=== PATIENT | female | born 1960 | race Caucasian/White ===

== ENCOUNTER 2017-01-20 13:44 | Inpatient (IN) | payer MEDICAID, OTHER ==
[2017-01-20 14:40] LABS: % IMMATURE GRANULYOCYTES 0.6 % (0.0-1.1); ABSOLUTE IMMATURE GRANULOCYTES 0.11 10^3/uL (0.00-0.10); ADD DIFF? NO; ADD MORPH? NO; ADD SCAN? NO; ATYPICAL LYMPHOCYTE FLAG 0 (0-99); FRAGMENT RBC FLAG 0 (0-99); HEMATOCRIT 36.5 % (38.0-47.0); HEMOGLOBIN 12.2 g/dL (12.6-16.3); LEFT SHIFT FLG 20 (0-99); LIPEMIA HEMOLYSIS FLAG 80 (0-99); MEAN CELL HEMOGLOBIN CONCENTR. 33.4 g/dL (32.4-36.7); MEAN CELL VOLUME 92.6 fL (81.5-99.8); MEAN PLATELET VOLUME 9.4 fL (8.7-11.7); PLATELET CLUMPS FLAG 10 (0-99); PLATELET COUNT 392 10^3/uL (150-400); RED BLOOD CELL COUNT 3.94 10^6/uL (4.18-5.33); RED CELL DISTRIBUTION WIDTH 13.4 % (11.5-15.2)
--- NOTE | 2017-01-20 14:40 | EDPHY ---
H & P Stated Complaint: fever and cough and back pain x 3 days . Time Seen by Provider: 01/20/17 14:14 HPI/ROS: Chief Complaint: Fever, cough, headache HPI: 56-year-old woman has been having fever cough and headache for the last 5 days. She is productive of green sputum. She has been having increasing shortness of breath with exertion. She does have a history of smoking but has never been diagnosed with COPD. She does not use any inhalers or oxygen at home. She has seen by her primary care physician's office and sent here for further evaluation. In triage was noted that her oxygen saturations were 75-80 % with a good waveform. Patient is also complaining of low back pain which is a exacerbation of her chronic pain. She has not have any pain with deep inspiration. No nausea or vomiting. No central chest pain. ROS: 10 point Review of Systems is negative except as noted in the HPI. PMH: SVT, hypertension, depression, chronic back pain Medications: Atenolol, lisinopril, fluoxetine, gabapentin, potassium, Percocet Allergies: Clindamycin causes hives Social History: Positive smoking Family History: non-contributory Physical Exam: Gen: Awake, Alert, No Distress HEENT: Nose: no rhinorrhea Eyes: PERRLA, EOMI Mouth: Moist mucosa Neck: Supple, no JVD Chest: nontender, diminished breath sounds bilaterally, no wheeze, rhonchi at the bilateral bases Heart: S1, S2 normal, no murmur Abd: Soft, non-tender, no guarding Back: no CVA tenderness, no midline tenderness Ext: no edema, non-tender Skin: no rash Neuro: CN II-XII intact, Sensation grossly intact, Strength 5/5 in bilateral upper and lower extremities - Personal History LMP (Females 10-55): Post Menopausal Current Tetanus Diphtheria and Acellular Pertussis (TDAP): Yes - Medical/Surgical History Hx Asthma: No Hx Chronic Respiratory Disease: No Hx Diabetes: No Hx Cardiac Disease: No Hx Renal Disease: No Hx Cirrhosis: No Hx Alcoholism: No Hx HIV/AIDS: No Hx Splenectomy or Spleen Trauma: No Other PMH: HTN/ORTHO- L4-L5-S1. SVT. Depression - Social History Smoking Status: Heavy smoker Constitutional: Initial Vital Signs Temperature (C) 37.9 C 01/20/17 13:50 Heart Rate 94 01/20/17 13:50 Respiratory Rate 20 01/20/17 13:50 Blood Pressure 113/74 01/20/17 13:50 O2 Sat (%) 88 L 01/20/17 13:50 O2 Delivery Mode Room Air O2 (L/minute) 2 Allergies/Adverse Reactions: clidinium [Clidinium] Allergy (Verified 01/20/17 13:59) clindamycin Allergy (Verified 01/20/17 13:59) Home Medications: Medication Instructions Recorded Atenolol 04/28/13 GABAPENTIN 04/28/13 Percocet 10-325 mg Tablet 04/28/13 Prozac 04/28/13 Lisinopril 01/20/17 Medical Decision Making - Diagnostics Imaging Results: Imaging Impressions Chest X-Ray 01/20/17 14:12 Impression: Bilateral pneumonia. Recommend follow-up x-ray to ensure clearing. ED Course/Re-evaluation: 56-year-old woman presenting with cough headache fever and shortness of breath. She has oxygen saturation 75%. Her heart rate and blood pressure are normal. She is not appear septic at this time. I suspect she probably has underlying COPD as well. Will obtain chest x-ray, CBC, blood cultures, flu swab. Chest x-ray noted for bilateral infiltrates. I have ordered azithromycin and ceftriaxone. I have discussed with Dr. Dietz, hospitalist. She will admit the patient to [facility] for further care. - Data Points Laboratory Results: Laboratory Results 01/20/17 14:35 01/20/17 14:35 01/20/17 01/20/17 01/20/17 14:35 14:35 14:35 WBC RBC Hgb Hct MCV MCH MCHC RDW Plt Count MPV Neut % (Auto) Lymph % (Auto) [place] % (Auto) Eos % (Auto) Baso % (Auto) Nucleat RBC Rel Count Absolute Neuts (auto) Absolute Lymphs (auto) Absolute Monos (auto) Absolute Eos (auto) Absolute Basos (auto) Absolute Nucleated RBC Immature Gran % Immature Gran # VBG Lactic Acid Pending Sodium 134 mEq/L mEq/L (134-144) Potassium 4.1 mEq/L mEq/L (3.5-5.2) Chloride 95 mEq/L L mEq/L (97-110) Carbon Dioxide 24 mEq/l mEq/l (22-31) Anion Gap 15 mEq/L mEq/L (8-16) BUN 9 mg/dL mg/dL (7-23) Creatinine 0.7 mg/dL mg/dL (0.6-1.0) Estimated GFR > 60 Glucose 89 mg/dL mg/dL (70-100) Calcium 9.3 mg/dL mg/dL (8.5-10.4) Nasal Influenza A PCR Pending Nasal Influenza B PCR Pending 01/20/17 14:35 WBC 19.08 10^3/uL H 10^3/uL (3.80-9.50) RBC 3.94 10^6/uL L 10^6/uL (4.18-5.33) Hgb 12.2 g/dL L g/dL (12.6-16.3) Hct 36.5 % L % (38.0-47.0) MCV 92.6 fL fL (81.5-99.8) MCH 31.0 pg pg (27.9-34.1) MCHC 33.4 g/dL g/dL (32.4-36.7) RDW 13.4 % % (11.5-15.2) Plt Count 392 10^3/uL 10^3/uL (150-400) MPV 9.4 fL fL (8.7-11.7) Neut % (Auto) 74.0 % % (39.3-74.2) Lymph % (Auto) 16.9 % % (15.0-45.0) [place] % (Auto) 7.3 % % (4.5-13.0) Eos % (Auto) 0.9 % % (0.6-7.6) Baso % (Auto) 0.3 % % (0.3-1.7) Nucleat RBC Rel Count 0.0 % % (0.0-0.2) Absolute Neuts (auto) 14.12 10^3/uL H 10^3/uL (1.70-6.50) Absolute Lymphs (auto) 3.23 10^3/uL H 10^3/uL (1.00-3.00) Absolute Monos (auto) 1.39 10^3/uL H 10^3/uL (0.30-0.80) Absolute Eos (auto) 0.17 10^3/uL 10^3/uL (0.03-0.40) Absolute Basos (auto) 0.06 10^3/uL 10^3/uL (0.02-0.10) Absolute Nucleated RBC 0.00 10^3/uL 10^3/uL (0-0.01) Immature Gran % 0.6 % % (0.0-1.1) Immature Gran # 0.11 10^3/uL H 10^3/uL (0.00-0.10) VBG Lactic Acid Sodium Potassium Chloride Carbon Dioxide Anion Gap BUN Creatinine Estimated GFR Glucose Calcium Nasal Influenza A PCR Nasal Influenza B PCR Departure - Departure Disposition: [facility] Inpatient Acute Clinical Impression: Pneumonia Condition: Fair Referrals: NONE *PRIMARY CARE P,. [Primary Care Provider] - As per Instructions
[2017-01-20 14:51] LABS: ANION GAP 15 mEq/L (8-16); CALCIUM 9.3 mg/dL (8.5-10.4); CARBON DIOXIDE 24 mEq/l (22-31); CHLORIDE 95 mEq/L (97-110); CREATININE 0.7 mg/dL (0.6-1.0); GLOMERULAR FILTRATION RATE > 60; GLUCOSE 89 mg/dL (70-100); POTASSIUM 4.1 mEq/L (3.5-5.2); SODIUM 134 mEq/L (134-144)
[2017-01-20] MEDS ORDERED: AZITHROMYCIN 250 MG TAB PO ONE (14:59)
[2017-01-20] MEDS ORDERED: IBUPROFEN 600 MG TAB PO ONE (16:09)
[2017-01-20] MEDS ORDERED: NS 1,000 ML IV ONE ×2 (17:47→19:57)
[2017-01-20] MEDS ORDERED: ACETAMINOPHEN 325 MG TAB PO PRN (19:49)
[2017-01-20] MEDS ORDERED: ONDANSETRON 4 MG/2 ML VIAL IVP PRN (19:49)
[2017-01-20] MEDS ORDERED: NS 1,000 ML IV SCH (20:00)
--- NOTE | 2017-01-20 20:23 | GHP ---
[f rep st] HISTORY AND PHYSICAL DATE OF ADMISSION: 01/20/2017 CHIEF COMPLAINT: Cough. HISTORY: The patient is a 56-year-old female, who has been sick for about a week. Her main complain t is sinus congestion with drainage. She went to physical therapy today for her chronic back pain an d they immediately said she did look very good and took some vital signs and her temperature was a 10 1 and she was 75% on room air and she was sent to the emergency room. After being sent to the emerge ncy room, she realized that she actually is a little short of breath with exertion and even with just talking. She has had a green productive sputum and headache. She is a little confused and hypotens roland on presentation to the hospital. PAST MEDICAL HISTORY: 1. SVT. 2. Hypertension. 3. Depression. 4. Chronic back pain. PAST SURGICAL HISTORY: Multiple spine surgeries. MEDICATIONS: Please see computer record for full detailed list. ALLERGIES: Clindamycin. SOCIAL HISTORY: She smokes 10 cigarettes per day. She drinks 1-2 glasses of rum per day. She lives with her boyfriend and daughter and daughter's kids. REVIEW OF SYSTEMS: Complete review of systems obtained. Review of systems negative on constitutiona l, HEENT, GI, pulmonary, vascular, , hematology, skin, muscular, endocrine, psych. Remainder posit joanna and negatives as in HPI. FAMILY HISTORY: Reviewed, noncontributory to presenting complaint. PHYSICAL EXAMINATION: GENERAL: Well-developed, well-nourished female, in no acute distress. VITAL SIGNS: Temperature is 37.3, pulse 100, blood pressure 113/74, saturating 88% on room air. EYES: No rmal conjunctivae. Pupils react to light. ENT: Normal ears, nose. Hearing intact. Normal teeth. Oropharynx moist. NECK: Trachea midline. No thyromegaly. CHEST: Normal effort. LUNGS: Clear t o auscultation bilaterally with no wheezes, but there are rales. No rhonchi. CARDIOVASCULAR: Regul ar rhythm. No murmur. No extremity edema. ABDOMEN: Soft, nontender. No hepatosplenomegaly. SKIN : Warm, dry, intact. No rash. MUSCULOSKELETAL: No cyanosis or clubbing. Strength 5/5 upper and l ower extremities. NEUROLOGIC: Cranial nerves intact. Normal sensation to light touch. PSYCH: Larisa rt and oriented x3. Normal mood and affect. Normal judgment. Normal memory. LABORATORY DATA: White count 19.08, hematocrit 36.5, platelets 392. Sodium 134, potassium 4.1, chlo ride 95, bicarb 24, BUN 9, creatinine 0.7, glucose 89. Lactate 1.5. Influenza is negative. Chest x -ray, reviewed by me and my personal interpretation is bilateral pneumonia. This case was discussed with Dr. Kayden Matos who saw her at [facility]. He initiated antibiotics and set up for admission. ASSESSMENT/PLAN: 1. Pneumonia. We will treat for community-acquired pneumonia with ceftriaxone and azithromycin. He r influenza is negative. I will send off a full respiratory PCR. I suspect this is a viral componen t problem. 2. Acute respiratory failure. She is now stable on oxygen. 3. Tobacco dependence. She is not wheezing. We will give her a nicotine patch. 4. Severe sepsis. She has developed hypotension since presentation and she did not get any IV fluid at [facility] ER, so I am going ahead and giving a sepsis bolus now 2 L and then will run a continuous rate. Her lactate is okay. Her blood cultures have been sent. 5. Metabolic encephalopathy. This is due to her infection. 6. History of supraventricular tachycardia. We will continue atenolol if her blood pressure allows. 7. Chronic back pain. She uses chronic Percocet which will be continued. CODE STATUS: Full. ADMISSION STATUS: Will admit to observation as length of treatment will depend on clinical course. DEEP VENOUS THROMBOSIS PROPHYLAXIS: She is moderate risk. We will place her on subcu Lovenox. /[id number]/MODL
[2017-01-20] MEDS: GABAPENTIN 300 MG CAP PO SCH (20:58)
[2017-01-20] MEDS: OXYCODONE/APAP 5/325 TAB PO PRN (20:58)
[2017-01-21] MEDS ORDERED: NS 1,000 ML IV ONE ×3 (00:13→22:43)
[2017-01-21] MEDS: OXYCODONE/APAP 5/325 TAB PO PRN ×4 (02:06→23:14)
[2017-01-21] MEDS: oxyCODONE IR 5 MG TAB PO PRN ×2 (02:07→20:29)
[2017-01-21 04:55] LABS: % IMMATURE GRANULYOCYTES 0.6 % (0.0-1.1); ABSOLUTE IMMATURE GRANULOCYTES 0.08 10^3/uL (0.00-0.10); ADD DIFF? NO; ADD MORPH? NO; ADD SCAN? NO; ATYPICAL LYMPHOCYTE FLAG 0 (0-99); FRAGMENT RBC FLAG 0 (0-99); HEMATOCRIT 29.5 % (38.0-47.0); HEMOGLOBIN 9.7 g/dL (12.6-16.3); LEFT SHIFT FLG 10 (0-99); LIPEMIA HEMOLYSIS FLAG 80 (0-99); MEAN CELL HEMOGLOBIN 31.4 pg (27.9-34.1); MEAN CELL HEMOGLOBIN CONCENTR. 32.9 g/dL (32.4-36.7); MEAN CELL VOLUME 95.5 fL (81.5-99.8); MEAN PLATELET VOLUME 9.7 fL (8.7-11.7); PLATELET CLUMPS FLAG 10 (0-99); PLATELET COUNT 300 10^3/uL (150-400); RED BLOOD CELL COUNT 3.09 10^6/uL (4.18-5.33); RED CELL DISTRIBUTION WIDTH 13.6 % (11.5-15.2)
[2017-01-21 05:21] LABS: ANION GAP 6 mEq/L (8-16); CALCIUM 8.1 mg/dL (8.5-10.4); CARBON DIOXIDE 20 mEq/l (22-31); CHLORIDE 111 mEq/L (97-110); CREATININE 0.7 mg/dL (0.6-1.0); GLOMERULAR FILTRATION RATE > 60; GLUCOSE 110 mg/dL (70-100); POTASSIUM 4.5 mEq/L (3.5-5.2); SODIUM 137 mEq/L (134-144)
[2017-01-21] MEDS: POTASSIUM CL 10 MEQ TAB PO SCH (08:30)
[2017-01-21] MEDS: ATENOLOL 25 MG TAB PO SCH (08:30)
[2017-01-21] MEDS: GABAPENTIN 300 MG CAP PO SCH ×2 (08:31→20:29)
[2017-01-21] MEDS: FLUoxetine 20 MG CAP PO SCH (08:31)
[2017-01-21] MEDS: ENOXAPARIN 40 MG/0.4 ML SYR SC SCH (08:32)
[2017-01-21] MEDS ORDERED: NICOTINE 14 MG/24 HR PATCH TD SCH (09:00)
[2017-01-21] MEDS ORDERED: NICOTINE 21 MG/24 HR PATCH TD SCH (09:00)
[2017-01-21] MEDS ORDERED: LISINOPRIL 20 MG TAB PO SCH (09:00)
[2017-01-21] MEDS: AZITHROMYCIN IV 500 MG in D5W 250 ML IV SCH (09:16)
--- NOTE | 2017-01-21 09:35 | HOSPPROG ---
Hospitalist Progress Note Assessment/Plan: Patient is a 56-year-old female who has been sick for approximately a week. Her main complaint is sinus congestion with drainage. She was getting physical therapy for her chronic back pain and was noted at that time her temperature was 101 degrees and her oxygen levels were 75% on room air. Today is my 1st encounter with the patient. Chart reviewed. * community-acquired pneumonia -she is negative for the influenza -PCR is positive for human rhino virus and and enterovirus -on azithromycin and ceftriaxone -leukocytosis has improved overnight * acute hypoxemic respiratory failure -stable on 2 L * sepsis with associated hypotension -lactate is stable -blood cultures are pending * metabolic encephalopathy -patient describes herself as being "off" -unclear if r/t illness, narcotics -will ask ST to see *Hypotension -cont fluids x 1 more liter * history of SVT -none ntoed *Nicotine dependence: allergic to patch -doesn't want gum * chronic pain on continuous, chronic opioids for chronic back pain -home meds resumed/ added ibuprofen *dvt prophylaxis: LMWH *Plan: will require another midnight stay for further evaluation. Patient is feeling poorly. Feels confused and not like herself, bp is on the low side/ will cont IV hydration. She will be IP.Will ask PT and OT to see and treat. she was very sedate and drowsy during my interview, will hold a.m. gabapentin dose to see if she clears tomorrow. Subjective: Georgie is feeling poorly/ says her legs are weak and she isn't feeling like herself. Objective: Vital Signs Temp Pulse Resp BP Pulse Ox 36.4 C 74 74 H 108/64 98 01/21/17 07:58 01/21/17 08:30 01/21/17 07:58 01/21/17 08:30 01/21/17 07:58 Microbiology 01/20/17 21:05 Respiratory Panel (PCR) - Final Nasal, Sinus - Swab Human Rhinovirus/Enterovirus Laboratory Results 01/21/17 04:43 01/21/17 04:43 01/20/17 01/21/17 01/22/17 05:59 05:59 05:59 Intake Total 3967 Balance 3967 - Physical Exam Constitutional: uncomfortable Eyes: PERRL Ears, Nose, Mouth, Throat: hearing normal Cardiovascular: regular rate and rhythym Respiratory: no respiratory distress Gastrointestinal: normoactive bowel sounds Skin: warm Musculoskeletal: generalized weakness Neurologic: AAOx3 (but very drowsy, closes her eyes frequently while talking with me) Psychiatric: thought process linear ICD10 Worksheet Patient Problems: Problems Problem Status Onset Pneumonia Acute
--- NOTE | 2017-01-21 10:46 | ASMTCMCOM ---
CM Note CM Note Notes: Patient admitted after presenting to [facility] ED with hypotension and low 02 sats. Diagnosed with PNA. Now on antibiotics and improving. PT/OT ordered and pending. Patient lives with her boyfriend and other family members. I anticipate she will discharge independently. CM available for any d/c needs. Date Signed: 01/21/2017 10:46 AM Electronically Signed By:Yue Bolanos RN
[2017-01-21] MEDS ORDERED: IBUPROFEN 200 MG TAB PO PRN (11:20)
[2017-01-21] MEDS ORDERED: IBUPROFEN 600 MG TAB PO ONE (11:20)
[2017-01-21] MEDS: ALBUTEROL 3 ML DEYVIAL IH SCH ×3 (12:45→21:48)
--- NOTE | 2017-01-21 13:13 | PDMN ---
Medical Necessity Medical necessity: change to IP; LOS>2 mn for CAP, acute hypoxemic resp failure , sepsis w/ hypotension, metabolic encephalopathy; continue IV abx, follow cx's , ST eval; hx SVT, chronic pain; per progress note and order 01/21/17
[2017-01-21] MEDS ORDERED: NS 500 ML IV ONE (15:43)
[2017-01-21] MEDS ORDERED: NS 1,000 ML IV SCH (22:45)
[2017-01-21] MEDS ORDERED: GUAIFENESIN/DM 10 ML UDCUP PO PRN (23:13)
[2017-01-21] MEDS ORDERED: BENZONATATE 100 MG CAP PO PRN (23:14)
--- NOTE | 2017-01-22 01:55 | CPEKG ---
Heart Rate: 102 RR Interval: 588 P-R Interval: 172 QRSD Interval: 100 QT Interval: 344 QTC Interval: 449 P Power: 58 QRS Power: -21 T Wave Power: 57 EKG Severity - ABNORMAL ECG - EKG Impression: SINUS TACHYCARDIA EKG Impression: BORDERLINE LEFT AXIS DEVIATION EKG Impression: MINIMAL ST DEPRESSION, ANTEROLATERAL LEADS EKG Impression: INCOMPLETE RIGHT BUNDLE BRANCH BLOCK EKG Impression: LEFT ATRIAL ENLARGEMENT Electronically Signed By: Tommie Clemons 22-Jan-2017 12:01:29
[2017-01-22 02:17] LABS: % IMMATURE GRANULYOCYTES 0.5 % (0.0-1.1); ADD DIFF? NO; ADD MORPH? NO; ADD SCAN? NO; ATYPICAL LYMPHOCYTE FLAG 0 (0-99); FRAGMENT RBC FLAG 0 (0-99); HEMATOCRIT 27.8 % (38.0-47.0); HEMOGLOBIN 9.1 g/dL (12.6-16.3); LEFT SHIFT FLG 10 (0-99); LIPEMIA HEMOLYSIS FLAG 80 (0-99); MEAN CELL HEMOGLOBIN 31.3 pg (27.9-34.1); MEAN CELL HEMOGLOBIN CONCENTR. 32.7 g/dL (32.4-36.7); MEAN CELL VOLUME 95.5 fL (81.5-99.8); MEAN PLATELET VOLUME 10.1 fL (8.7-11.7); PLATELET CLUMPS FLAG 0 (0-99); PLATELET COUNT 318 10^3/uL (150-400); RED BLOOD CELL COUNT 2.91 10^6/uL (4.18-5.33); RED CELL DISTRIBUTION WIDTH 13.6 % (11.5-15.2)
[2017-01-22 02:30] LABS: ALANINE AMINOTRANSFERASE 44 IU/L (9-52); ALBUMIN 2.5 g/dL (3.5-5.0); ALKALINE PHOSPHATASE 107 IU/L (38-126); ANION GAP 8 mEq/L (8-16); ASPARTATE AMINOTRANSFERASE 37 IU/L (14-46); BILIRUBIN,TOTAL 0.3 mg/dL (0.1-1.4); CARBON DIOXIDE 18 mEq/l (22-31); CHLORIDE 114 mEq/L (97-110); CREATININE 0.6 mg/dL (0.6-1.0); GLOMERULAR FILTRATION RATE > 60; GLUCOSE 106 mg/dL (70-100); POTASSIUM 4.1 mEq/L (3.5-5.2); SODIUM 140 mEq/L (134-144); TOTAL PROTEIN 4.5 g/dL (6.3-8.2)
[2017-01-22 02:41] LABS: TROPONIN I < 0.012 ng/mL (0.000-0.034)
--- NOTE | 2017-01-22 02:51 | HOSPPROG ---
Hospitalist Progress Note Assessment/Plan: Hospitalist Night FLoat Note RN notified that patient with increased O2 demands from 2 lpm to 10 lpm on oxy mask. Patient blood pressures also noted to be SBP 80s. not tachycardic. Patient also with drop in BPs last nigth response to additional IVF bolus. Tonight patient with only minimal improvement in SBP to low 90s. Patient also increasingly confused, restless, impulsive. Hx of daily alcohol intake including 3 or more beverages of rum daily. Patient admitted with bilateral pneumonia, sepsis and +Rhinovirus on respiratory panel. Patient c/o increased WOB, SOB, substernal chest pain and cough. VS reviewed. Gen - NAD. patient sitting in in bed awake. patient is restless but answers questions appropriately. appears flushed, acutely ill but nontoxic. CV - RRR. no m/r/g. Resp - mild increased WOB more so when patient moves. coarse breath sounds diffusely with occasional wheezing. diminished air movement in bases. + congested sounding cough. GI - soft abdomen. + BS. NTTP. no rebound/guarding. - no alston in place. no suprapubic ttp. Ext - trace pitting edema to lower extremities. Neuro - nonfocal. moves all extremities. patient unsteady on feet and tries to sit up without assistance to use commode. Psych - patient a little confused. She is restless and increasingly agitated with multiple questions. She is oriented to person and place. Patient would not allow me to call her family with updates. Acute hypoxic resp failure bilateral pna +rhinovirus +tobacco abuse +etoh abuse with likely withdrawal. Plan - chest pain eval - likely related to bilateral pneumonia but patient can only provide limited history at this time. check trop, ekg with NSR with minimal < 1mm ST depression anterolateral leads which could be indicative of demand in setting of worsening resp status. cxr worsened with diffuse infiltrate/edema. BPs too low at this time to allow for diuresis. s/p nebs. check abg, lactic acid and am labs. - hypotension - BPs slightly increased. goal SBP > 90 MAP >65. patient will go to unit for bipap and may require pressor support. - hx etoh - patient will be placed on ciwa monitoring but BPs at this time too low for benzo support. - acute hypoxic resp failure - patient transferring to ICU for bipap support if she will tolerate. pulm/cc consult in AM. critical care time spent this AM 25 minutes. Objective: Vital Signs Temp Pulse Resp BP Pulse Ox 36.9 C 101 H 22 H 86/58 L 88 L 01/22/17 00:00 01/22/17 00:00 01/22/17 00:00 01/22/17 00:00 01/22/17 00:00 Microbiology 01/21/17 Unknown - Final Sputum, Expectorated Laboratory Results 01/22/17 01:50 01/22/17 01:50 01/20/17 01/21/17 01/22/17 05:59 05:59 05:59 Intake Total 1210 Balance 1210 ICD10 Worksheet Patient Problems: Problems Problem Status Onset Pneumonia Acute
[2017-01-22 03:00] LABS: CORTISOL-AM 10.1 ug/dL (4.5-22.7)
[2017-01-22] MEDS: THIAMINE HCL 500 MG in NS 100 ML IV SCH ×2 (03:00→11:33)
[2017-01-22] MEDS ORDERED: FUROSEMIDE 20 MG/2 ML VIAL IVP ONE (03:00)
[2017-01-22 03:52] LABS: BASE EXCESS -6.9 mEq/L (-2.5-2.5); BICARBONATE 18 mEq/L (22-26); MEASURED OXYGEN SATURATION 91 % (92-95); PCO2 38 mmHg (34-38); PO2 65 mmHg (65-75); TCO2 20 mEq/L (23-27)
[2017-01-22 03:53] LABS: BIPAP YES; EXP PRESSURE 6; INSP PRESSURE 450; OXYGEN BLEED 60
[2017-01-22] MEDS: ALBUTEROL 3 ML DEYVIAL IH SCH ×4 (05:19→21:48)
[2017-01-22] MEDS ORDERED: COSYNTROPIN 0.25 MG/2 ML SYRINGE IVP ONE (06:00)
[2017-01-22] MEDS: OXYCODONE/APAP 5/325 TAB PO PRN (08:15)
[2017-01-22] MEDS: FLUoxetine 20 MG CAP PO SCH (08:16)
[2017-01-22] MEDS: oxyCODONE IR 5 MG TAB PO PRN ×2 (08:17→15:43)
--- NOTE | 2017-01-22 08:47 | HOSPPROG ---
Hospitalist Progress Note Assessment/Plan: #Acute metabolic/toxic encephalopathy: due acute infection, hypoxia and etoh w/ d. #Severe sepsis: due to viral URI vs aspiration. #Acute hypoxic resp failure: Rhino/enterovirus. Diffuse BL infiltrates on CXR ( personally-reviewed), ARDS. Likely aspirated with confusion. Change abx to Unasyn. Cont IV diuresis and Bipap #Depression: prozac #h/o SVT: hold atenolol with hypotension #HTN: holding BP meds with hypotension #Leukocytosis: due to viral infection vs aspiration PNA/pneumonitis #Etoh withdrawal: drinks liquor daily. Scoring 5-6 on CIWA #h/o SVT: resume atenolol once BP stable #Diet: regular #Disp: patient does not have medical decision capacity given confusion with acute illness and w/d. She is agreeable to stay now. If tries to leave, then she will be on a medical detainer to prevent harm to herself Critical care time spent: 60min bedside with patient, reviewing lab/records, and d/w Dr. Rainey Subjective: "no one is telling me what's wrong". Very SOB this morning Objective: Vital Signs Temp Pulse Resp BP Pulse Ox 36.9 C 112 H 24 H 86/58 L 96 01/22/17 00:00 01/22/17 05:20 01/22/17 05:20 01/22/17 00:00 01/22/17 05:20 Microbiology 01/21/17 Unknown - Final Sputum, Expectorated Laboratory Results 01/22/17 01:50 01/22/17 01:50 01/21/17 01/22/17 01/23/17 05:59 05:59 05:59 Intake Total 1335 Output Total 2200 Balance -865 - Physical Exam Constitutional: uncomfortable, other (sitting on couch off oxygen) Eyes: PERRL Ears, Nose, Mouth, Throat: moist mucous membranes Cardiovascular: tachycardia Respiratory: respiratory distress (increased WOB, breathless when talking) Gastrointestinal: normoactive bowel sounds Genitourinary: no bladder fullness Musculoskeletal: full muscle strength Neurologic: CN II-XII Intact Psychiatric: anxious, depressed ICD10 Worksheet Patient Problems: Problems Problem Status Onset Pneumonia Acute
[2017-01-22] MEDS: ENOXAPARIN 40 MG/0.4 ML SYR SC SCH (08:49)
[2017-01-22] MEDS: POTASSIUM CL 10 MEQ TAB PO SCH (08:49)
[2017-01-22] MEDS ORDERED: LORazepam 0.5 MG TAB PO ONE (09:05)
[2017-01-22] MEDS: LORazepam 1 MG TAB PO PRN ×2 (09:31→15:43)
[2017-01-22] MEDS: VODKA 50 ML BOTTLE PO SCH ×2 (11:34→16:17)
[2017-01-22] MEDS: AZITHROMYCIN IV 500 MG in D5W 250 ML IV SCH (11:34)
[2017-01-22 12:40] LABS: MAGNESIUM 1.5 mg/dL (1.6-2.3)
--- NOTE | 2017-01-22 14:46 | ASMTCMCOM ---
CM Note CM Note Notes: Patient does not have decisional capacity given the confusion from acute illness and w/d. Dr. Rey will put on medical detainer if patient tries to leave. Patient is agreeable to stay for now. PT/OT/SPL have been ordered. CM will follow. Date Signed: 01/22/2017 02:45 PM Electronically Signed By:Breann Hernandez LCSW
--- NOTE | 2017-01-22 14:50 | ECHO ---
[email or web address] [address] Main: [phone] Fax: Transthoracic Echocardiogram Name: JIGAR ANGELES MR#: [id number] Study Date: 01/22/2017 Study Time: 09:06 AM Date of : 1960 Age: 56 year(s) Height: 152.4 cm (60 in.) Weight: 55.34 kg (122 lb.) BSA: 1.51 m2 Gender: Female Examination: Echo Indication: hypotension Image Quality: Technically Difficult Contrast: Requested by: Catalina Dietz BP: / Heart Rate: Rhythm: Normal sinus rhythm Indication: hypotension Procedure Staff Preschool Teacher: Adry Wagner Physician: Jadiel Hodge Requesting Provider: Conclusions: Normal global systolic LV function. Mild mitral valve regurgitation is present. Mild to moderate tricuspid valve regurgitation. No pericardial effusion. Measurements: Chambers Valvular Assessment AV/MV Valvular Assessment TV/PV Normal Normal Normal Name Value Range Name Value Range Name Value Range Ao Anat (MM): 2.4 cm (2.2 cm-3.7 AV Vmax: 1.60 m/s (1 m/s-1.7 TR Vmax: 3.36 mm/s ( - ) cm) m/s) TR PGmax: 45 mmHg ( - ) IVSd (2D): 0.8 cm (0.6 cm-1.1 AV maxP mmHg ( - ) syst. PAP: 50 mmHg ( - ) cm) LVOT Vmax: 1.03 m/s (0.7 m/s-1.1 PV Vmax: 0.89 m/s (0.6 m/s-0.9 LVDd (2D): 4.3 cm (3.9 cm-5.3 m/s) m/s) cm) MV E Vmax: 1.11 m/s ( - ) PV PGmax: 3 mmHg ( - ) LVDs (2D): 2.3 cm (2.1 cm-4 MV A Vmax: 0.81 m/s ( - ) cm) MV E/A: 1.37 ( - ) LVPWd (2D): 0.8 cm ( - ) LVEF (MOD4): 78 % (>=55 %) RVDd(2D): 2.7 cm (1.9 cm-3.8 cmmm) Continued Measurements: Chambers Valvular Assessment AV/MV Valvular Assessment TV/PV Name Value Name Value Name Value LADs Lon.4 cm MV DecTime: 119 m/s CVP (est.): 5 mmHg LA Area: 14.8 cm2 MV E' Septal: 0.09 m/s LA Volume: 30 ml MV E/E' Septal: 12.50 LA Volume Index: 19.9 ml/m2 MV E/E' Lateral: 9.00 Patient: JIGAR ANGELES Study Date: 01/22/2017 Page 1 of 2 09:06 AM Additional Vessels Name Value Ao Ascendin.2 cm Findings: Left Ventricle: Normal size left ventricle. No LV hypertrophy. Normal global systolic LV function. EF is 78 %. No regional wall motion abnormality. Normal diastolic LV function. Right Ventricle: Normal size right ventricle. Left Atrium: The left atrium is normal in size. Right Atrium: The right atrium is normal in size. Mitral Valve: The mitral valve is normal in appearance and function. Mild mitral valve regurgitation is present. Aortic Valve: The aortic valve is normal in appearance and function. Tricuspid Valve: The tricuspid valve is normal in appearance and function. Mild to moderate tricuspid valve regurgitation. The pulmonary artery pressure is moderately increased. Right ventricular systolic pressure measures 50mmHg. Pulmonic Valve: The pulmonic valve is normal in appearance and function. Aorta: The aorta is normal. Normal size aortic root measuring 2.4 cm. Normal size ascending aorta measuring 2.2 cm. Pericardium: No pericardial effusion. (No Signature Object) Patient: JIGAR ANGELES Study Date: 01/22/2017 Page 2 of 2 09:06 AM [id number]
[2017-01-22] MEDS ORDERED: LORazepam 2 MG/ML INJ IVP PRN ×4 (17:20→17:51)
[2017-01-22] MEDS ORDERED: HALOPERIDOL LACT 5 MG/ML INJ IVP PRN (17:33)
[2017-01-22] MEDS ORDERED: DEXMEDETOMIDINE HCL 400 MCG in NS 100 ML IV SCH (17:51)
[2017-01-22] MEDS ORDERED: chlordiazePOXIDE 25 MG CAP PO PRN (17:51)
[2017-01-22] MEDS ORDERED: LORazepam 1 MG TAB PO PRN (17:51)
[2017-01-22] MEDS ORDERED: diphenhydrAMINE 25 MG CAP PO PRN (17:51)
[2017-01-22] MEDS ORDERED: MIDAZOLAM 2 MG/2 ML VIAL IVP PRN (17:51)
[2017-01-22] MEDS ORDERED: chlordiazePOXIDE 25 MG CAP PO ONE (18:00)
[2017-01-22] MEDS ORDERED: LORazepam 1 MG TAB PO ONE (18:00)
[2017-01-22] MEDS ORDERED: LORazepam 2 MG/ML INJ IVP ONE (18:00)
[2017-01-22] MEDS ORDERED: LORazepam 1 MG TAB PO SCH (18:00)
[2017-01-22] MEDS ORDERED: LORazepam 2 MG/ML INJ IVP SCH (18:00)
[2017-01-22] MEDS ORDERED: MAGNESIUM SULF 2 GM/WATER 50 ML IV ONE (18:27)
[2017-01-22] MEDS ORDERED: DEXMEDETOMIDINE IN 0.9 % NACL 100 ML IV SCH (18:30)
[2017-01-22] MEDS ORDERED: fentaNYL/NACL 100 ML IV SCH (19:00)
[2017-01-22] MEDS ORDERED: NARCOTIC DRIP BAG-TOTAL ALL TYPES IV PRN (19:26)
[2017-01-22] MEDS: AMPICILLIN/SULBACTAM 3 GM in NS 100 ML IV SCH (19:35)
[2017-01-22] MEDS ORDERED: fentaNYL 100 MCG/2 ML INJ IVP ONE (20:00)
[2017-01-22] MEDS ORDERED: MIDAZOLAM 2 MG/2 ML VIAL IVP ONE (20:00)
[2017-01-22] MEDS ORDERED: SUCCINYLCHOLINE CHLORIDE 200 MG/10 ML VIAL IVP ONE (20:00)
[2017-01-22] MEDS ORDERED: ETOMIDATE 20 MG/10 ML VIAL IV ONE (20:00)
--- NOTE | 2017-01-22 20:55 | EDPHY ---
ED Progress Note Narrative: I was called to the patient's bedside emergently in ICU for airway control. I spoke with the bedside physician. She requested the patient be intubated due to aspiration risk and altered mental status. GENERAL: Mild acute distress, agitation. HEENT: Eyes closed but opens stimuli. Pharynx with dry mucous membranes. Dentition intact. NECK: Normal appearing RESPIRATORY: Coarse breath sounds bilaterally CVS: Mild tachycardia with no rubs murmurs or gallops ABDOMEN: Soft, nontender. SKIN: Normal color. EXTREMITIES: No significant edema. NEURO/PSYCH: agitated with eyes closed Patient was on high-flow nasal cannula. A non-rebreather was also placed. This brought the patient's pre intubation oxygen saturation to 95%. Procedure: RSI Indication: Airway control Patient was unable to give consent. She had altered mental status. Patient was preoxygenated and examined. The patient was given etomidate 15 mg IV followed by succinylcholine 110 mg IV. On 1st attempt with video laryngoscopy us 7.0 ET tube was placed without complication. Cuff was inflated. There was misting in the tube. Equal chest rise. No abdominal breath sounds. Caloric capnometry change. RT was present. The patient was placed on a ventilator. Post intubation x-ray was ordered with the attending physician. Patient was given fentanyl 150 mcg IV for pain control. She was given Versed 2 mg IV for sedation.
[2017-01-22] MEDS: GABAPENTIN 300 MG CAP PO SCH (21:03)
[2017-01-22] MEDS ORDERED: SUCCINYLCHOLINE CHLORIDE*ANESTHESIA ONLY*200 MG/10 ML SYR IVP ONE (21:15)
[2017-01-22] MEDS ORDERED: ETOMIDATE 40 MG/20 ML INJ IV ONE (21:15)
[2017-01-22 21:31] LABS: ASSIST CONTROL YES; BASE EXCESS -3.3 mEq/L (-2.5-2.5); BICARBONATE 20 mEq/L (22-26); END TIDAL CO2 31; MEASURED OXYGEN SATURATION 87 % (92-95); O2 CONCENTRATIION 50 % (0-100); P/F RATIO 106 RATIO; PCO2 32 mmHg (34-38); PO2 53 mmHg (65-75); TCO2 21 mEq/L (23-27); TOTAL RATE 24
[2017-01-23] MEDS ORDERED: LORazepam 1 MG TAB PO SCH
[2017-01-23] MEDS: AMPICILLIN/SULBACTAM 3 GM in NS 100 ML IV SCH ×5 (00:07→23:27)
[2017-01-23] MEDS: PROPOFOL/EMULSION 100 ML IV SCH ×4 (00:07→19:51)
[2017-01-23] MEDS: LORazepam 2 MG/ML INJ IVP SCH ×5 (00:08→23:28)
[2017-01-23] MEDS: VODKA 50 ML BOTTLE PO SCH ×4 (00:15→20:03)
[2017-01-23 04:34] LABS: BASE EXCESS -1.6 mEq/L (-2.5-2.5); BICARBONATE 21 mEq/L (22-26); MEASURED OXYGEN SATURATION 95 % (92-95); PCO2 29 mmHg (34-38); PO2 68 mmHg (65-75); TCO2 22 mEq/L (23-27)
[2017-01-23 04:36] LABS: ASSIST CONTROL YES; END TIDAL CO2 25; O2 CONCENTRATIION 60 % (0-100); P/F RATIO 113 RATIO; TOTAL RATE 34
[2017-01-23] MEDS: ALBUTEROL 200 PUFFS/18 GM MDI IH SCH ×4 (04:59→20:19)
[2017-01-23 05:22] LABS: % IMMATURE GRANULYOCYTES 0.6 % (0.0-1.1); ABSOLUTE IMMATURE GRANULOCYTES 0.09 10^3/uL (0.00-0.10); ADD DIFF? NO; ADD MORPH? NO; ADD SCAN? NO; ATYPICAL LYMPHOCYTE FLAG 0 (0-99); FRAGMENT RBC FLAG 0 (0-99); HEMATOCRIT 25.8 % (38.0-47.0); HEMOGLOBIN 8.9 g/dL (12.6-16.3); LEFT SHIFT FLG 10 (0-99); LIPEMIA HEMOLYSIS FLAG 90 (0-99); MEAN CELL HEMOGLOBIN 31.7 pg (27.9-34.1); MEAN CELL HEMOGLOBIN CONCENTR. 34.5 g/dL (32.4-36.7); MEAN CELL VOLUME 91.8 fL (81.5-99.8); MEAN PLATELET VOLUME 9.8 fL (8.7-11.7); PLATELET CLUMPS FLAG 10 (0-99); PLATELET COUNT 297 10^3/uL (150-400); RED BLOOD CELL COUNT 2.81 10^6/uL (4.18-5.33); RED CELL DISTRIBUTION WIDTH 13.7 % (11.5-15.2)
[2017-01-23 05:38] LABS: ANION GAP 8 mEq/L (8-16); CALCIUM 8.4 mg/dL (8.5-10.4); CARBON DIOXIDE 22 mEq/l (22-31); CHLORIDE 111 mEq/L (97-110); CREATININE 0.6 mg/dL (0.6-1.0); GLOMERULAR FILTRATION RATE > 60; GLUCOSE 90 mg/dL (70-100); MAGNESIUM 1.6 mg/dL (1.6-2.3); POTASSIUM 3.5 mEq/L (3.5-5.2); SODIUM 141 mEq/L (134-144)
[2017-01-23] MEDS ORDERED: ACETAMINOPHEN 650 MG SUPP PR PRN (05:41)
[2017-01-23] MEDS ORDERED: ACETAMINOPHEN 650 MG SUPP PR ONE (05:45)
[2017-01-23 07:10] LABS: TROPONIN I 0.579 ng/mL (0.000-0.034)
--- NOTE | 2017-01-23 09:06 | HOSPPROG ---
Hospitalist Progress Note Assessment/Plan: 56 yo F w aspiration pneumonia, hypoxemic resp failure and alcohol withdrawal Acute metabolic/toxic encephalopathy: due acute infection, hypoxia and etoh w/ d. now intubated, sedated will schedule IV ativan Severe sepsis: due to viral URI vs aspiration. Acute hypoxic resp failure: Rhino/enterovirus. Diffuse BL infiltrates on CXR ( personally-reviewed), ARDS. Likely aspirated with confusion. Change abx to Unasyn. Cont IV diuresis and Bipap cxr sig worse- viral vs ARDS may be reasonable to bronch ? volume overload: echo pretty normal not much response tp lasix follow Depression: prozac resp alkalosis: minute ventilation decreased h/o SVT: hold atenolol with hypotension HTN: holding BP meds with hypotension Leukocytosis: due to viral infection vs aspiration PNA/pneumonitis Etoh withdrawal: drinks liquor daily. Scoring 5-6 on CIWA start low dose IV ativan h/o SVT: resume atenolol once BP stable Diet: regular Disp: patient does not have medical decision capacity given confusion with acute illness and w/d. She is agreeable to stay now. If tries to leave, then she will be on a medical detainer to prevent harm to herself 35 min crit care Subjective: case d/w dr kinney. cxr w severe b/l airspace disease, progressive from admission (interp by me) Objective: Vital Signs Temp Pulse Resp BP Pulse Ox 37.2 C 101 H 40 H 82/39 L 99 01/23/17 04:00 01/23/17 05:03 01/23/17 05:03 01/23/17 04:00 01/23/17 05:03 Microbiology 01/21/17 Unknown - Final Sputum, Expectorated Laboratory Results 01/23/17 05:15 01/23/17 05:15 01/22/17 01/23/17 01/24/17 05:59 05:59 05:59 Intake Total 1335 1215 Output Total 2200 1375 Balance -865 -160 - Physical Exam Constitutional: no apparent distress, other (intubated, sedated) Eyes: PERRL, anicteric sclera Ears, Nose, Mouth, Throat: moist mucous membranes, hearing normal Cardiovascular: regular rate and rhythym, No systolic murmur Respiratory: no respiratory distress, other (rhoncorous throughout) Gastrointestinal: normoactive bowel sounds, soft, non-tender abdomen Genitourinary: no bladder fullness, No alston in urethra Skin: warm, normal color Musculoskeletal: full muscle strength Neurologic: No AAOx3 Psychiatric: No interacting appropriately ICD10 Worksheet Patient Problems: Problems Problem Status Onset Pneumonia Acute
[2017-01-23] MEDS ORDERED: ALBUMIN 5% 250 ML IV ONE (09:27)
--- NOTE | 2017-01-23 09:36 | GCON ---
[f rep st] CONSULTATION MASK INSPECTOR CONSULTATION REASON FOR ADMISSION: Alcohol withdrawal, delirium tremors, respiratory failure. HISTORY OF PRESENT ILLNESS: Ms. Nava is a 56-year-old white female with a past medical history o f chronic pain, depression, hypertension, SVT. She also apparently has significant alcohol intake. She was admitted on 01/20, diagnosed with pneumonia as well as severe sepsis. The following day she had increasing levels of agitation requiring increased sedation. On the evening of 01/22, she had mar ked deterioration in her mental status and excessive agitation secondary to withdrawal of alcohol. S he was subsequently intubated for protection of airway and placed on mechanical ventilation. Current ly, she is sedated on mechanical ventilation. All history is gleaned from the medical record. PAST MEDICAL HISTORY: Again, significant for depression, chronic back pain, hypertension, SVT and al cohol abuse. ALLERGIES: Clindamycin. SOCIAL HISTORY: She is a 30+ pack-year smoker and continues to smoke. She drinks 1-2 glasses of rum per day, though I feel this is likely underestimated. PAST SURGICAL HISTORY: Multiple spine surgeries. CURRENT MEDICATIONS: Tylenol, albuterol, atenolol, Tessalon Perles, Librium, Lovenox, fentanyl, sissy pentin, guaifenesin, dextromethorphan, Haldol, lorazepam, propofol and ampicillin. PHYSICAL EXAMINATION: VITAL SIGNS: Blood pressure is 82/39, pulse is 99, respirations 34, temperatu re 37.2, oxygen saturation 98% on mechanical ventilation. GENERAL: She is a well-developed 56-year- old white female who is sedated and on mechanical ventilation HEENT: Eyes are PERRLA, EOMI. THROAT: Endotracheal tube is in good position. NECK: Supple. There is no cervical adenopathy. HEART: Re gular rate and rhythm without murmurs, rubs, or gallops. LUNGS: Diminished breath sounds but no whe [place]. ABDOMEN: Soft, nontender. Bowel sounds are present in all 4 quadrants. EXTREMITIES: No club jina, cyanosis, or edema. LABORATORIES: White count is 15,000, hemoglobin of 8.9, hematocrit 25, platelet count is 297. Sodiu m is 141, potassium 3.5, chloride 111, CO2 is 22, BUN 4, creatinine 0.6, glucose is 90. Troponins ar e mildly elevated at 0.57. Influenza A and B are negative. Arterial blood gas, pH 7.48, pCO2 of 29, PO2 is 68, bicarb 22, oxygen saturation is 95%. This is on assist control. Tidal volume 400, +5 of PEEP. Chest x-ray shows bilateral infiltrates in both lungs. Endotracheal tube is in good position. IMPRESSION: 1. Acute respiratory failure secondary to pneumonia. 2. Diffuse pneumonia. Nasal swabs consistent with rhinovirus. 3. Acute alcohol withdrawals. 4. History of hypertension. 5. History of chronic pain. RECOMMENDATIONS: 1. Will continue mechanical ventilation for now. 2. Agree with CIWA protocol. 3. Agree with current antibiotic coverage. 4. DVT and PE prophylaxis. 5. Stress ulcer prophylaxis. 6. Adequate nutrition. /[id number]/MODL
[2017-01-23] MEDS ORDERED: PROTOCOL POTASSIUM 1 DOSE MISC PRN (09:47)
[2017-01-23] MEDS ORDERED: PROTOCOL MAGNESIUM 1 DOSE IV PRN (09:47)
[2017-01-23] MEDS ORDERED: POTASSIUM Cl (KCl) 100 ML IV SCH (09:50)
[2017-01-23] MEDS: ENOXAPARIN 40 MG/0.4 ML SYR SC SCH (10:00)
[2017-01-23] MEDS ORDERED: LIDOCAINE 1% 300 MG/30 ML SDV MISC ONE (10:29)
[2017-01-23] MEDS ORDERED: LIDOCAINE 2% JELLY 5 ML TUBE TP ONE (10:29)
[2017-01-23] MEDS: FLUoxetine 20 MG CAP PO SCH (10:43)
[2017-01-23] MEDS: THIAMINE HCL 500 MG in NS 100 ML IV SCH (10:44)
[2017-01-23] MEDS: POTASSIUM CL 10 MEQ TAB PO SCH (10:44)
[2017-01-23 11:14] LABS: BASE EXCESS -2.8 mEq/L (-2.5-2.5); BICARBONATE 21 mEq/L (22-26); MEASURED OXYGEN SATURATION 91 % (92-95); PCO2 32 mmHg (34-38); PO2 61 mmHg (65-75); TCO2 22 mEq/L (23-27)
[2017-01-23 11:16] LABS: O2 CONCENTRATIION 60 % (0-100); P/F RATIO 102 RATIO; SIMV YES
[2017-01-23 11:17] LABS: PATIENT RATE 56; PRESSURE SUPPORT 7
[2017-01-23] MEDS: POTASSIUM Cl (KCl) 10 MEQ in NS 100 ML IV SCH ×3 (11:23→17:00)
[2017-01-23] MEDS ORDERED: ALTEPLASE 2 MG VIAL IVP PRN (11:25)
[2017-01-23] MEDS ORDERED: NS 500 ML IV ONE (11:30)
[2017-01-23] MEDS ORDERED: MAGNESIUM SULF 1 GM/DEXTROSE 100 ML IV ONE (14:55)
[2017-01-23 19:10] LABS: POTASSIUM 3.6 mEq/L (3.5-5.2)
[2017-01-23] MEDS: CHLORHEXIDINE GLUCONATE 15 ML UDL PO SCH (20:02)
[2017-01-23] MEDS: GABAPENTIN 300 MG CAP PO SCH (20:04)
[2017-01-23] MEDS: ACETAMINOPHEN 650 MG/20.3 ML UDCUP TUBE PRN (20:14)
[2017-01-23] MEDS: FAMOTIDINE 20 MG/NACL 50 ML IV SCH (20:40)
[2017-01-23] MEDS: POTASSIUM Cl (KCl) 50 ML IV SCH ×3 (21:15→22:30)
[2017-01-24 00:54] LABS: POTASSIUM 3.8 mEq/L (3.5-5.2)
[2017-01-24] MEDS ORDERED: POTASSIUM Cl (KCl) 50 ML IV ONE ×3 (01:05→14:45)
[2017-01-24] MEDS: PROPOFOL/EMULSION 100 ML IV SCH ×3 (01:16→18:46)
[2017-01-24] MEDS: ALBUTEROL 200 PUFFS/18 GM MDI IH SCH ×4 (05:13→20:25)
[2017-01-24 05:20] LABS: BASE EXCESS -3.9 mEq/L (-2.5-2.5); BICARBONATE 20 mEq/L (22-26); MEASURED OXYGEN SATURATION 94 % (92-95); PCO2 34 mmHg (34-38); PO2 72 mmHg (65-75); TCO2 21 mEq/L (23-27)
[2017-01-24] MEDS: LORazepam 2 MG/ML INJ IVP SCH ×3 (05:20→18:05)
[2017-01-24] MEDS: AMPICILLIN/SULBACTAM 3 GM in NS 100 ML IV SCH ×3 (05:20→18:05)
[2017-01-24 05:21] LABS: % IMMATURE GRANULYOCYTES 1.2 % (0.0-1.1); ABSOLUTE IMMATURE GRANULOCYTES 0.18 10^3/uL (0.00-0.10); ADD DIFF? NO; ADD MORPH? NO; ADD SCAN? NO; ATYPICAL LYMPHOCYTE FLAG 0 (0-99); FRAGMENT RBC FLAG 0 (0-99); HEMATOCRIT 23.4 % (38.0-47.0); HEMOGLOBIN 7.8 g/dL (12.6-16.3); LEFT SHIFT FLG 20 (0-99); LIPEMIA HEMOLYSIS FLAG 80 (0-99); MEAN CELL HEMOGLOBIN 31.3 pg (27.9-34.1); MEAN CELL HEMOGLOBIN CONCENTR. 33.3 g/dL (32.4-36.7); PLATELET CLUMPS FLAG 0 (0-99); PLATELET COUNT 305 10^3/uL (150-400); RED BLOOD CELL COUNT 2.49 10^6/uL (4.18-5.33); RED CELL DISTRIBUTION WIDTH 14.4 % (11.5-15.2)
[2017-01-24 05:24] LABS: ASSIST CONTROL YES; O2 CONCENTRATIION 50 % (0-100); P/F RATIO 144 RATIO; TOTAL RATE 28
[2017-01-24 05:36] LABS: MAGNESIUM 2.1 mg/dL (1.6-2.3); POTASSIUM 3.9 mEq/L (3.5-5.2)
[2017-01-24] MEDS: CHLORHEXIDINE GLUCONATE 15 ML UDL PO SCH ×2 (07:46→21:23)
--- NOTE | 2017-01-24 08:56 | PDINTPN ---
Agronomy Advisor Progress Note Assessment/Plan: Assessment/plan: * Viral pneumonitis * Acute respiratory failure secondary to above-easily oxygenated and ventilated. Does not appear to be adult respiratory distress syndrome. -continue mechanical ventilation. Will hold consideration for paralytics for now. * Acute alcohol withdrawals-continue CIWA protocol * Severe sepsis-likely resolved * Sedation-adequate. * Chronic back pain * VTE prophylaxis * Stress ulcer prophylaxis * Nutrition-on trickle tube feeds 40 minutes of critical care time spent with patient. Case discussed with Nursing, Respiratory therapy Subjective: Sedated on mechanical ventilation Objective: Vital Signs Temp Pulse Resp BP Pulse Ox 37.8 C 88 41 H 119/63 97 01/24/17 06:00 01/24/17 07:43 01/24/17 07:43 01/24/17 06:00 01/24/17 07:43 Microbiology 01/23/17 17:00 Respiratory Panel (PCR) - Final Unspecified No Organism Detected 01/23/17 11:15 Mycobacterial Smear (NINO) - Final Lung Bilateral - Bronchial Washings 01/21/17 Unknown - Final Sputum, Expectorated Sputum Culture - Final Laboratory Results 01/24/17 05:10 01/24/17 05:10 01/23/17 01/24/17 01/25/17 05:59 05:59 05:59 Intake Total 1215 3633.4 Output Total 1375 1450 Balance -160 2183.4 Physical Exam - Physical Exam General Appearance: other, No alert EENT: PERRL/EOMI, ET tube Neck: non-tender, supple Respiratory: crackles (Scattered), No respiratory distress, No stridor, No wheezing Cardiac/Chest: normal peripheral pulses, regular rate, rhythm Peripheral Pulses: 2+: carotid (R), carotid (L), femoral (R), femoral (L), dorsalis-pedis (R), dorsalis-pedis (L) Abdomen: normal bowel sounds, non-tender, soft Pelvic Exam: deferred Rectal: deferred Skin: normal color, warm/dry Extremities: non-tender, normal inspection Neuro/Psych: No alert ICD10 Worksheet Patient Problems: Problems Problem Status Onset Pneumonia Acute
[2017-01-24] MEDS: THIAMINE HCL 500 MG in NS 100 ML IV SCH (09:24)
[2017-01-24] MEDS: FAMOTIDINE 20 MG/NACL 50 ML IV SCH ×2 (09:24→21:05)
[2017-01-24] MEDS: FLUoxetine 20 MG CAP PO SCH (09:24)
[2017-01-24] MEDS: ENOXAPARIN 40 MG/0.4 ML SYR SC SCH (09:25)
[2017-01-24] MEDS: POTASSIUM CL 10 MEQ TAB PO SCH (09:31)
[2017-01-24] MEDS: VODKA 50 ML BOTTLE PO SCH ×3 (09:32→21:51)
[2017-01-24] MEDS ORDERED: POTASSIUM Cl (KCl) 20 MEQ/50 ML BAG IV ONE (09:49)
--- NOTE | 2017-01-24 10:55 | HOSPPROG ---
Hospitalist Progress Note Assessment/Plan: 56 yo F w aspiration pneumonia, hypoxemic resp failure and alcohol withdrawal Acute metabolic/toxic encephalopathy: due acute infection, hypoxia and etoh w/ d. now intubated, sedated ativan scheduled 2q12 for alcohol withdrawal- CIWA unreliable given sedattion decrease prns wean ativan in coming days Severe sepsis: due to viral URI vs aspiration. Acute hypoxemic resp failure: likely viral continue abx for 7 day course bronch pretty unrevealing MANAGER SALT ARDS doubt pulm edema ? volume overload: echo pretty normal not much response tp lasix follow Depression: prozac resp alkalosis: minute ventilation decreased, improved today h/o SVT: hold atenolol with hypotension HTN: holding BP meds with hypotension Leukocytosis: due to viral infection vs aspiration PNA/pneumonitis Etoh withdrawal: drinks liquor daily. Scoring 5-6 on CIWA start low dose IV ativan h/o SVT: resume atenolol once BP stable Diet: regular Disp: patient does not have medical decision capacity given confusion with acute illness and w/d. She is agreeable to stay now. If tries to leave, then she will be on a medical detainer to prevent harm to herself 35 min crit care Subjective: bronch yesterday w minimal purulence. case d/w dr kinney. cxr w unchanged (perhaps slightly improved from 01/22) b/l airspace disease (interp by me) Objective: Vital Signs Temp Pulse Resp BP Pulse Ox 37.8 C 83 22 H 111/70 100 01/24/17 08:00 01/24/17 08:00 01/24/17 08:00 01/24/17 08:00 01/24/17 08:00 Microbiology 01/23/17 11:15 Gram Stain - Final Lung Right Lower Lobe - Bronch [place] 01/23/17 17:00 Respiratory Panel (PCR) - Final Unspecified No Organism Detected 01/23/17 11:15 Mycobacterial Smear (NINO) - Final Lung Bilateral - Bronchial Washings 01/21/17 Unknown - Final Sputum, Expectorated Sputum Culture - Final Laboratory Results 01/24/17 05:10 01/24/17 05:10 01/23/17 01/24/17 01/25/17 05:59 05:59 05:59 Intake Total 1215 3633.4 Output Total 1375 1450 Balance -160 2183.4 - Physical Exam Constitutional: other (intubated, sedated) Eyes: PERRL, anicteric sclera Ears, Nose, Mouth, Throat: moist mucous membranes, hearing normal Cardiovascular: regular rate and rhythym, no murmur, rub, or gallop Respiratory: no respiratory distress, other (rhoncorous b/l), No no rales or rhonchi Gastrointestinal: normoactive bowel sounds, soft, non-tender abdomen Genitourinary: no bladder fullness, alston in urethra Skin: warm, normal color Musculoskeletal: full muscle strength, no muscle tenderness Neurologic: No AAOx3 Psychiatric: No interacting appropriately Lymph, Heme, Immunologic: No no cervical LAD ICD10 Worksheet Patient Problems: Problems Problem Status Onset Pneumonia Acute
[2017-01-24 11:01] LABS: COLOR YELLOW; LEUKOCYTE ESTERASE,URINE NEGATIVE (NEGATIVE); NITRITE,URINE NEGATIVE (NEGATIVE)
[2017-01-24 14:06] LABS: POTASSIUM 3.9 mEq/L (3.5-5.2)
[2017-01-24] MEDS: GABAPENTIN 300 MG CAP PO SCH (21:03)
[2017-01-25] MEDS: LORazepam 2 MG/ML INJ IVP SCH ×5 (00:09→21:19)
[2017-01-25] MEDS: AMPICILLIN/SULBACTAM 3 GM in NS 100 ML IV SCH ×4 (00:09→18:17)
[2017-01-25] MEDS: PROPOFOL/EMULSION 100 ML IV SCH ×3 (02:46→16:41)
[2017-01-25] MEDS: ALBUTEROL 200 PUFFS/18 GM MDI IH SCH ×4 (04:06→19:55)
[2017-01-25 04:43] LABS: % IMMATURE GRANULYOCYTES 1.6 % (0.0-1.1); ABSOLUTE IMMATURE GRANULOCYTES 0.21 10^3/uL (0.00-0.10); ABSOLUTE NRBC COUNT 0.02 10^3/uL (0-0.01); ADD DIFF? NO; ADD MORPH? NO; ADD SCAN? NO; ATYPICAL LYMPHOCYTE FLAG 0 (0-99); FRAGMENT RBC FLAG 0 (0-99); HEMATOCRIT 23.1 % (38.0-47.0); HEMOGLOBIN 7.2 g/dL (12.6-16.3); LEFT SHIFT FLG 30 (0-99); LIPEMIA HEMOLYSIS FLAG 80 (0-99); MEAN CELL HEMOGLOBIN 29.6 pg (27.9-34.1); MEAN CELL HEMOGLOBIN CONCENTR. 31.2 g/dL (32.4-36.7); MEAN CELL VOLUME 95.1 fL (81.5-99.8); MEAN PLATELET VOLUME 10.4 fL (8.7-11.7); NRBC-AUTO% 0.1 % (0.0-0.2); PLATELET CLUMPS FLAG 0 (0-99); PLATELET COUNT 321 10^3/uL (150-400); RED BLOOD CELL COUNT 2.43 10^6/uL (4.18-5.33); RED CELL DISTRIBUTION WIDTH 14.5 % (11.5-15.2)
[2017-01-25 04:47] LABS: MAGNESIUM 1.9 mg/dL (1.6-2.3); POTASSIUM 3.7 mEq/L (3.5-5.2)
[2017-01-25] MEDS ORDERED: POTASSIUM Cl (KCl) 50 ML IV ONE ×3 (05:33→22:26)
[2017-01-25] MEDS: POTASSIUM CL 10 MEQ TAB PO SCH (08:28)
[2017-01-25] MEDS: ENOXAPARIN 40 MG/0.4 ML SYR SC SCH (08:28)
[2017-01-25] MEDS: CHLORHEXIDINE GLUCONATE 15 ML UDL PO SCH ×2 (08:28→21:19)
[2017-01-25] MEDS: FLUoxetine 20 MG CAP PO SCH (08:28)
[2017-01-25] MEDS: VODKA 50 ML BOTTLE PO SCH ×2 (08:30→10:37)
[2017-01-25] MEDS: FAMOTIDINE 20 MG/NACL 50 ML IV SCH (08:46)
[2017-01-25] MEDS ORDERED: THIAMINE HCL 100 MG TAB PO SCH (09:00)
[2017-01-25] MEDS: THIAMINE HCL 500 MG in NS 100 ML IV SCH (09:40)
[2017-01-25 10:52] LABS: BASE EXCESS -1.8 mEq/L (-2.5-2.5); BICARBONATE 22 mEq/L (22-26); MEASURED OXYGEN SATURATION 97 % (92-95); PCO2 37 mmHg (34-38); PO2 86 mmHg (65-75); TCO2 23 mEq/L (23-27)
[2017-01-25 10:54] LABS: ASSIST CONTROL YES; O2 CONCENTRATIION 50 % (0-100); P/F RATIO 172 RATIO
[2017-01-25 10:55] LABS: TOTAL RATE 22
[2017-01-25 11:25] LABS: CALCIUM 8.1 mg/dL (8.5-10.4); CARBON DIOXIDE 21 mEq/l (22-31); CHLORIDE 111 mEq/L (97-110); CREATININE 0.5 mg/dL (0.6-1.0); GLOMERULAR FILTRATION RATE > 60; GLUCOSE 116 mg/dL (70-100); SODIUM 141 mEq/L (134-144)
[2017-01-25] MEDS ORDERED: oxyCODONE IR 5 MG TAB TUBE PRN (11:30)
--- NOTE | 2017-01-25 12:01 | PDINTPN ---
Policy Change Clerk Progress Note Assessment/Plan: Assessment: * Viral pneumonitis * Acute respiratory failure secondary to above - associated with diffuse pulmonary infiltrates. Does not appear to be adult respiratory distress syndrome, but cannot rule as out entirely. FiO2 at 50%, ABG fine. On assist control. Not ready for CPAP weans. * Acute alcohol withdrawal - continue treatment, off CIWA protocol while on the ventilator. * Severe sepsis-appears to be resolved * Sedation - on propofol and fentanyl, doing well. * History of chronic back pain * VTE prophylaxis - on Lovenox * Stress ulcer prophylaxis - on Pepcid * Nutrition - on trickle tube feeds * Volume overload -CVP remains high, above 15. Plan. Continue ventilatory support and supportive care. Continue antibiotics. Continue sedation and fentanyl. Follow laboratory, blood gas and chest x- ray. Lasix diuresis to bring CVP down to approximately 10. Continue tube feedings, advance to goal slowly. 50 minutes of critical care time spent with directly with patient. Chest x-rays , laboratory and records all reviewed. Case discussed with Nursing, RT, and the ICU multi disciplinary team. Subjective: Sedated, appears comfortable, on the ventilator. Arouses weakly Objective: Vital Signs Temp Pulse Resp BP Pulse Ox 37.8 C 74 21 H 108/59 L 97 01/25/17 11:06 01/25/17 11:11 01/25/17 11:11 01/25/17 11:06 01/25/17 11:11 Microbiology 01/23/17 11:15 Gram Stain - Final Lung Right Lower Lobe - Bronch [place] Laboratory Results 01/25/17 04:25 01/25/17 04:30 01/24/17 01/25/17 01/26/17 05:59 05:59 05:59 Intake Total 3633.4 8 Output Total 1450 2250 325 Balance 2183.4 -292 -325 Laboratory Tests 01/25/17 01/25/17 01/25/17 04:25 04:30 10:45 pCO2 37 pO2 86 H ABG pH 7.40 ABG O2 Saturation 97 H O2 Concentration % 50 Respiration Rate 22 Set Respiration Rate 12 Assist Control YES Tidal Volume 450 PEEP 5 Calcium 8.1 L Phosphorus 3.5 D Magnesium 1.9 Bronch culture: Negative so far. Respiratory viral panel: Positive for rhino virus/enterovirus. Chest x-ray diffuse bilateral pulmonary infiltrates persist, possibly increased today. Lines and tubes in good position. ICD10 Worksheet Patient Problems: Problems Problem Status Onset Pneumonia Acute
[2017-01-25] MEDS ORDERED: FUROSEMIDE 40 MG/4 ML VIAL IVP ONE (12:05)
--- NOTE | 2017-01-25 14:04 | HOSPPROG ---
Hospitalist Progress Note Assessment/Plan: 56 yo F w aspiration pneumonia, hypoxemic resp failure and alcohol withdrawal Acute metabolic/toxic encephalopathy: due acute infection, hypoxia and etoh w/ d. now intubated, sedated decrease ativan scheduled to 1 q12 for alcohol withdrawal- CIWA unreliable given sedation wean ativan in coming days Severe sepsis: due to viral URI vs aspiration. Acute hypoxemic resp failure: likely viral continue abx for 7 day course today is day 6 (01/25) bronch pretty unrevealing PIGMENT FURNACE TENDER ARDS doubt pulm edema ? volume overload: echo pretty normal not much response tp lasix follow Depression: prozac resp alkalosis: minute ventilation decreased, improved today h/o SVT: hold atenolol with hypotension HTN: holding BP meds with hypotension Leukocytosis: due to viral infection vs aspiration PNA/pneumonitis Etoh withdrawal: drinks liquor daily. Scoring 5-6 on CIWA start low dose IV ativan h/o SVT: resume atenolol once BP stable Diet: regular Disp: patient does not have medical decision capacity given confusion with acute illness and w/d. She is agreeable to stay now. If tries to leave, then she will be on a medical detainer to prevent harm to herself 35 min crit care Subjective: case d/w dr hassan. cxr w unchnaged airspace disease (interp by me) Objective: Vital Signs Temp Pulse Resp BP Pulse Ox 37.7 C 82 22 H 108/59 L 96 01/25/17 11:58 01/25/17 11:58 01/25/17 11:58 01/25/17 11:58 01/25/17 11:58 Microbiology 01/23/17 11:15 Gram Stain - Final Lung Right Lower Lobe - Bronch [place] Laboratory Results 01/25/17 04:25 01/25/17 04:30 01/24/17 01/25/17 01/26/17 05:59 05:59 05:59 Intake Total 3633.4 1957 Output Total 1450 2250 425 Balance 2183.4 -575 -425 - Physical Exam Constitutional: no apparent distress, appears nourished, other (intubated, sedated) Eyes: PERRL, anicteric sclera Ears, Nose, Mouth, Throat: moist mucous membranes, hearing normal Cardiovascular: regular rate and rhythym, no murmur, rub, or gallop Respiratory: no respiratory distress, no rales or rhonchi Gastrointestinal: normoactive bowel sounds, soft, non-tender abdomen Genitourinary: no bladder fullness, No alston in urethra Skin: warm, normal color Musculoskeletal: full muscle strength Neurologic: AAOx3, sensation intact bilaterally Psychiatric: interacting appropriately, not anxious Lymph, Heme, Immunologic: no cervical LAD ICD10 Worksheet Patient Problems: Problems Problem Status Onset Pneumonia Acute
[2017-01-25] MEDS: ACETAMINOPHEN 650 MG/20.3 ML UDCUP TUBE PRN (14:10)
[2017-01-25 14:51] LABS: POTASSIUM 3.9 mEq/L (3.5-5.2)
[2017-01-25 18:50] LABS: POTASSIUM 3.8 mEq/L (3.5-5.2)
[2017-01-25] MEDS: FAMOTIDINE 20 MG TAB TUBE SCH (21:19)
[2017-01-25] MEDS: GABAPENTIN 300 MG CAP TUBE SCH (21:20)
[2017-01-26] MEDS: AMPICILLIN/SULBACTAM 3 GM in NS 100 ML IV SCH ×4 (00:11→17:36)
[2017-01-26] MEDS: PROPOFOL/EMULSION 100 ML IV SCH ×2 (02:18→12:51)
[2017-01-26 04:06] LABS: CALCULATED OXYGEN SATURATION 94 % (92-95); O2 CONCENTRATIION 50 % (0-100)
[2017-01-26] MEDS: ALBUTEROL 200 PUFFS/18 GM MDI IH SCH ×4 (04:22→20:44)
[2017-01-26 04:47] LABS: ABSOLUTE NRBC COUNT 0.03 10^3/uL (0-0.01); ADD DIFF? YES; ADD MORPH? NO; ADD SCAN? NO; ATYPICAL LYMPHOCYTE FLAG 0 (0-99); FRAGMENT RBC FLAG 0 (0-99); HEMATOCRIT 23.9 % (38.0-47.0); HEMOGLOBIN 7.8 g/dL (12.6-16.3); LEFT SHIFT FLG 40 (0-99); LIPEMIA HEMOLYSIS FLAG 80 (0-99); MEAN CELL HEMOGLOBIN 31.1 pg (27.9-34.1); MEAN CELL HEMOGLOBIN CONCENTR. 32.6 g/dL (32.4-36.7); MEAN CELL VOLUME 95.2 fL (81.5-99.8); MEAN PLATELET VOLUME 9.9 fL (8.7-11.7); NRBC-AUTO% 0.3 % (0.0-0.2); PLATELET CLUMPS FLAG 0 (0-99); PLATELET COUNT 380 10^3/uL (150-400); RED BLOOD CELL COUNT 2.51 10^6/uL (4.18-5.33); RED CELL DISTRIBUTION WIDTH 14.6 % (11.5-15.2)
[2017-01-26 05:08] LABS: ANION GAP 9 mEq/L (8-16); CALCIUM 8.1 mg/dL (8.5-10.4); CARBON DIOXIDE 25 mEq/l (22-31); CHLORIDE 107 mEq/L (97-110); CREATININE 0.5 mg/dL (0.6-1.0); GLOMERULAR FILTRATION RATE > 60; GLUCOSE 120 mg/dL (70-100); MAGNESIUM 1.8 mg/dL (1.6-2.3); SODIUM 141 mEq/L (134-144)
[2017-01-26] MEDS ORDERED: MAGNESIUM SULF 1 GM/DEXTROSE 100 ML IV ONE (05:18)
[2017-01-26 05:39] LABS: MICROCYTES 1+; POLYCHROMASIA 1+
[2017-01-26 05:41] LABS: TOXIC VACUOLIZATION PRESENT
[2017-01-26 05:42] LABS: GIANT PLATELETS PRESENT; STOMATOCYTES 1+
[2017-01-26 05:43] LABS: PLATELET ESTIMATE ADEQUATE (ADEQ)
[2017-01-26] MEDS: ENOXAPARIN 40 MG/0.4 ML SYR SC SCH (08:46)
[2017-01-26] MEDS: CHLORHEXIDINE GLUCONATE 15 ML UDL PO SCH ×2 (08:48→23:00)
[2017-01-26] MEDS: THIAMINE HCL 100 MG TAB TUBE SCH (08:49)
[2017-01-26] MEDS: FAMOTIDINE 20 MG TAB TUBE SCH ×2 (08:49→23:00)
[2017-01-26] MEDS: POTASSIUM CL 20 MEQ/15 ML UDCUP TUBE SCH (08:58)
[2017-01-26] MEDS: FLUoxetine 20 MG CAP TUBE SCH (08:58)
[2017-01-26] MEDS: LORazepam 2 MG/ML INJ IVP SCH (09:05)
[2017-01-26] MEDS ORDERED: FUROSEMIDE 40 MG/4 ML VIAL IVP ONE (10:08)
--- NOTE | 2017-01-26 10:44 | PDINTPN ---
Product Development Coordinator Progress Note Assessment/Plan: Assessment: * Viral pneumonitis * Acute respiratory failure secondary to above - associated with diffuse pulmonary infiltrates, improving. Does not appear to have adult respiratory distress syndrome. FiO2 improved: on 40%, ABG fine. Can start CPAP trials. Possibly can extubate in the next 1-2 days. * Acute alcohol withdrawal - continue ativan, off CIWA protocol while on the ventilator. * Severe sepsis - resolved * Sedation - on propofol and fentanyl, doing well. * History of chronic back pain * VTE prophylaxis - on Lovenox * Stress ulcer prophylaxis - on Pepcid * Nutrition - on trickle tube feeds * Volume overload -CVP remains high, above 15. Plan. Continue ventilatory support and supportive care. Start CPAP trials. Continue Lasix intermittently. Follow Is and Os. Continue antibiotics. Continue propofol and fentanyl. Follow laboratory, blood gas and chest x-ray. Continue tube feedings, advance to goal slowly. 45 minutes of critical care time spent with directly with patient. Discussed with Hospitalist, Nursing, RT, and the ICU multi disciplinary team. Subjective: Sedated with propofol and fentanyl, on ventilator. Appears comfortable. Arouses weakly Objective: Vital Signs Temp Pulse Resp BP Pulse Ox 37.5 C 83 16 103/62 97 01/26/17 10:00 01/26/17 10:00 01/26/17 10:00 01/26/17 10:00 01/26/17 10:00 Microbiology 01/23/17 11:15 Gram Stain - Final Lung Right Lower Lobe - Bronch [place] Laboratory Results 01/26/17 04:35 01/26/17 04:35 01/25/17 01/26/17 01/27/17 05:59 05:59 05:59 Intake Total 1958 2449.4 100 Output Total 2250 3225 400 Balance -292 -775.6 -300 Laboratory Tests 01/26/17 01/26/17 03:51 04:35 POC pH 7.39 POC pCO2 42 H POC pO2 73 POC O2 Sat (Calc) 94 Calcium 8.1 L Magnesium 1.8 Chest x-ray: Some improvement in the bilateral pulmonary infiltrates is seen. Lines and tubes in good position except for the central line which now comes back on itself in the superior vena cava. Physical Exam - Physical Exam General Appearance: other (Sedated, on ventilator. Restless) EENT: PERRL/EOMI, ET tube, other (Nasogastric tube in place) Neck: normal inspection (CVP approximately 12) Respiratory: decreased breath sounds, rales (Few bibasilar scattered rales), No rhonchi (No significant secretions), No wheezing Cardiac/Chest: regular rate, rhythm Abdomen: normal bowel sounds, non-tender, soft, other (Tolerating tube feedings) Pelvic Exam: other (Hsu catheter in place. Good urine output last 24 hours, positive out with Lasix) Skin: warm/dry, pallor Extremities: pedal edema Neuro/Psych: no motor/sensory deficits (Moves all extremities.), cognition abnormalities (Hard to assess completely. Does look to voice, follows simple commands.) ICD10 Worksheet Patient Problems: Problems Problem Status Onset Pneumonia Acute
[2017-01-26 12:41] LABS: POTASSIUM 3.6 mEq/L (3.5-5.2)
[2017-01-26] MEDS: POTASSIUM Cl (KCl) 50 ML IV SCH ×3 (13:35→14:46)
--- NOTE | 2017-01-26 17:05 | HOSPPROG ---
Hospitalist Progress Note Assessment/Plan: 56 yo F w aspiration pneumonia, hypoxemic resp failure and alcohol withdrawal Acute metabolic/toxic encephalopathy: due acute infection, hypoxia and etoh w/ d. now intubated, sedated dc scheduled ativan use prn Severe sepsis: due to viral URI vs aspiration. Acute hypoxemic resp failure: likely viral continue abx for 7 day course today is day 6/7 (01/25) bronch pretty unrevealing BODY AND FENDER MECHANIC APPRENTICE ARDS doubt pulm edema ? volume overload: echo pretty normal not much response tp lasix follow Depression: prozac resp alkalosis: minute ventilation decreased, improved today h/o SVT: hold atenolol with hypotension HTN: holding BP meds with hypotension Leukocytosis: due to viral infection vs aspiration PNA/pneumonitis Etoh withdrawal: drinks liquor daily. Scoring 5-6 on CIWA start low dose IV ativan h/o SVT: resume atenolol once BP stable Diet: regular Dispo: inpt Subjective: cxr w slightly decreased airspace disease (interp by me). case d/w dr hassan Objective: Vital Signs Temp Pulse Resp BP Pulse Ox 37.9 C 91 15 107/57 L 97 01/26/17 16:00 01/26/17 16:00 01/26/17 16:00 01/26/17 16:00 01/26/17 16:00 Microbiology 01/23/17 11:15 Gram Stain - Final Lung Right Lower Lobe - Bronch [place] Bronchial Washings Culture - Final 01/23/17 11:15 Mycobacterial Smear (NINO) - Final Lung Bilateral - Bronchial [place] Laboratory Results 01/26/17 04:35 01/26/17 12:15 01/25/17 01/26/17 01/27/17 05:59 05:59 05:59 Intake Total 8 2449.4 100 Output Total 2250 0802 1710 Balance -395 -280.4 -1526 - Physical Exam Constitutional: no apparent distress, other (eyes open. intubated) Eyes: PERRL, anicteric sclera Ears, Nose, Mouth, Throat: moist mucous membranes, hearing normal Cardiovascular: regular rate and rhythym, no murmur, rub, or gallop Respiratory: no respiratory distress, no rales or rhonchi Gastrointestinal: normoactive bowel sounds, soft, non-tender abdomen Genitourinary: no bladder fullness, alston in urethra Skin: warm, normal color Musculoskeletal: full muscle strength ICD10 Worksheet Patient Problems: Problems Problem Status Onset Pneumonia Acute
[2017-01-26 18:29] LABS: POTASSIUM 6.5 mEq/L (3.5-5.2)
[2017-01-26] MEDS: GABAPENTIN 300 MG CAP TUBE SCH (23:00)
[2017-01-27] MEDS: AMPICILLIN/SULBACTAM 3 GM in NS 100 ML IV SCH ×4 (00:25→18:10)
[2017-01-27] MEDS: PROPOFOL/EMULSION 100 ML IV SCH (00:25)
[2017-01-27] MEDS: ALBUTEROL 200 PUFFS/18 GM MDI IH SCH (04:07)
[2017-01-27 04:56] LABS: ADD DIFF? YES; ADD MORPH? NO; ADD SCAN? NO; ATYPICAL LYMPHOCYTE FLAG 40 (0-99); FRAGMENT RBC FLAG 40 (0-99); HEMATOCRIT 25.2 % (38.0-47.0); HEMOGLOBIN 8.2 g/dL (12.6-16.3); LEFT SHIFT FLG 60 (0-99); LIPEMIA HEMOLYSIS FLAG 80 (0-99); MEAN CELL HEMOGLOBIN 30.9 pg (27.9-34.1); MEAN CELL HEMOGLOBIN CONCENTR. 32.5 g/dL (32.4-36.7); MEAN CELL VOLUME 95.1 fL (81.5-99.8); MEAN PLATELET VOLUME 9.6 fL (8.7-11.7); PLATELET CLUMPS FLAG 0 (0-99); PLATELET COUNT 525 10^3/uL (150-400); RED BLOOD CELL COUNT 2.65 10^6/uL (4.18-5.33); RED CELL DISTRIBUTION WIDTH 14.5 % (11.5-15.2)
[2017-01-27 05:07] LABS: ANION GAP 7 mEq/L (8-16); CALCIUM 8.3 mg/dL (8.5-10.4); CARBON DIOXIDE 33 mEq/l (22-31); CHLORIDE 102 mEq/L (97-110); CREATININE 0.4 mg/dL (0.6-1.0); GLOMERULAR FILTRATION RATE > 60; GLUCOSE 116 mg/dL (70-100); POTASSIUM 4.1 mEq/L (3.5-5.2); SODIUM 142 mEq/L (134-144)
[2017-01-27 05:29] LABS: HYPOCHROMIA 2+; MICROCYTES 1+; PLATELET ESTIMATE ADEQUATE (ADEQ)
[2017-01-27 05:36] LABS: BASE EXCESS 4.2 mEq/L (-2.5-2.5); BICARBONATE 29 mEq/L (22-26); MEASURED OXYGEN SATURATION 96 % (92-95); PCO2 47 mmHg (34-38); PO2 82 mmHg (65-75); TCO2 31 mEq/L (23-27)
[2017-01-27 05:39] LABS: CPAP YES; END TIDAL CO2 57; PATIENT RATE 18
[2017-01-27 05:40] LABS: PRESSURE SUPPORT 10
[2017-01-27] MEDS ORDERED: LORazepam 1 MG TAB PO SCH (06:00)
[2017-01-27] MEDS ORDERED: LORazepam 2 MG/ML INJ IVP SCH (06:00)
[2017-01-27] MEDS: THIAMINE HCL 100 MG TAB TUBE SCH (08:07)
[2017-01-27] MEDS: FLUoxetine 20 MG CAP TUBE SCH (08:07)
[2017-01-27] MEDS: FAMOTIDINE 20 MG TAB TUBE SCH (08:07)
[2017-01-27] MEDS: POTASSIUM CL 20 MEQ/15 ML UDCUP TUBE SCH (08:07)
[2017-01-27] MEDS: ENOXAPARIN 40 MG/0.4 ML SYR SC SCH (08:08)
[2017-01-27] MEDS: CHLORHEXIDINE GLUCONATE 15 ML UDL PO SCH (08:24)
[2017-01-27] MEDS ORDERED: LORazepam 1 MG TAB TUBE PRN (09:00)
[2017-01-27] MEDS ORDERED: GUAIFENESIN/DM 10 ML UDCUP TUBE PRN (09:00)
--- NOTE | 2017-01-27 10:56 | PDINTPN ---
Law Office Receptionist Progress Note Assessment/Plan: Assessment: * Viral pneumonitis * Acute respiratory failure secondary to above - associated with diffuse pulmonary infiltrates, improving. Does not appear to have adult respiratory distress syndrome. FiO2 improved: on 40%, ABG fine, tolerating CPAP weans. Can extubate today. * Acute alcohol withdrawal - on low-dose Ativan, off CIWA protocol while on the ventilator. Will re-evaluate post extubation. Withdrawal may or may not still be an issue? * Severe sepsis - resolved * Sedation - on propofol and fentanyl while on ventilator. Will DC propofol, continue fentanyl at 25 post extubation. * History of chronic back pain * VTE prophylaxis - on Lovenox * Stress ulcer prophylaxis - on Pepcid * Nutrition - on trickle tube feeds. Will DC with extubation, comma start p.o. does * Volume overload -CVP about 8. Plan. Extubate today, with close follow-up of her respiratory status. Will restart CIWA protocol and evaluate for ongoing withdrawal. Continue Lasix intermittently as indicated. Follow Is and Os. Continue antibiotics for total of 7 days. Follow laboratory, blood gas and chest x-ray as needed. Start with clear liquids and advance diet as tolerated post extubation.. 50 minutes of critical care time spent with directly with patient. Discussed with Hospitalist, Nursing, RT, and the ICU multi disciplinary team. Subjective: On ventilator. On CPAP wean this morning, did well. Remains restless, coughing Objective: Vital Signs Temp Pulse Resp BP Pulse Ox 37.0 C 87 13 124/71 H 98 01/27/17 10:00 01/27/17 10:00 01/27/17 10:00 01/27/17 10:00 01/27/17 10:00 Microbiology 01/23/17 11:15 Gram Stain - Final Lung Right Lower Lobe - Bronch [place] Bronchial Washings Culture - Final 01/23/17 11:15 Mycobacterial Smear (NINO) - Final Lung Bilateral - Bronchial [place] Laboratory Results 01/27/17 04:30 01/27/17 04:30 01/26/17 01/27/17 01/28/17 05:59 05:59 05:59 Intake Total 2449.4 2715.6 513.7 Output Total 3225 3840 550 Balance -775.6 -1124.4 -36.3 Laboratory Tests 01/27/17 01/27/17 04:30 05:23 pCO2 47 H pO2 82 H ABG pH 7.41 ABG O2 Saturation 96 H Total O2 Concentration 40.0 Calcium 8.3 L Magnesium 2.0 NT-Pro-B Natriuret Pep 768 H CXR: Continued improvement in bilateral pulmonary infiltrates. Lines and tubes in good position. Physical Exam - Physical Exam General Appearance: mild distress (Restless, coughing. Follow simple commands) EENT: PERRL/EOMI, ET tube, other (OG to) Neck: normal inspection (No JVD. CVP 8-10 range.) Respiratory: lungs clear (Anteriorly. Breath sounds coarse), decreased breath sounds (At bases), rales (Few rales at both bases), No normal breath sounds ( Course), No rhonchi, No wheezing Cardiac/Chest: regular rate, rhythm Abdomen: normal bowel sounds, non-tender, soft, other (Tolerating tube feeding) Pelvic Exam: other (Hsu catheter in place: Excellent urine output last 24 hours) Skin: warm/dry, pallor Extremities: No pedal edema Neuro/Psych: no motor/sensory deficits (Moves all extremities equally), No cognition abnormalities (Appears intact) ICD10 Worksheet Patient Problems: Problems Problem Status Onset Pneumonia Acute
[2017-01-27] MEDS ORDERED: ACETAMINOPHEN 325 MG TAB PO PRN (11:18)
--- NOTE | 2017-01-27 11:22 | ASMTCMCOM ---
CM Note CM Note Notes: Patient remains on vent. OT/SPL eval still needed. CM will continue to follow. Date Signed: 01/27/2017 11:21 AM Electronically Signed By:Breann Hernandez LCSW
[2017-01-27] MEDS ORDERED: oxyCODONE IR 5 MG TAB PO PRN (11:30)
[2017-01-27] MEDS ORDERED: GUAIFENESIN/DM 10 ML UDCUP PO PRN (11:30)
[2017-01-27] MEDS: IPRATROPIUM/ALBUTEROL 3 ML DEYVIAL IH SCH ×3 (11:33→21:54)
[2017-01-27] MEDS ORDERED: LORazepam 1 MG TAB PO PRN (11:42)
[2017-01-27] MEDS ORDERED: LORazepam 2 MG/ML INJ IV PRN (12:05)
[2017-01-27 13:13] LABS: POTASSIUM 3.9 mEq/L (3.5-5.2)
[2017-01-27] MEDS ORDERED: *PHM DO NOT USE-LORazepam 1 MG/ML IV NEWBORN SYR IV SCH (14:00)
[2017-01-27] MEDS ORDERED: POTASSIUM Cl (KCl) 50 ML IV ONE (14:04)
--- NOTE | 2017-01-27 14:59 | HOSPPROG ---
Hospitalist Progress Note Assessment/Plan: 56 yo F w aspiration pneumonia, hypoxemic resp failure and alcohol withdrawal Acute metabolic/toxic encephalopathy: due acute infection, hypoxia and etoh w/ d. 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 volume overload: echo pretty normal bnp has come down w diuresis Depression: prozac resp alkalosis: minute ventilation decreased, improved today h/o SVT: hold atenolol with hypotension HTN: holding BP meds with hypotension Leukocytosis: due to viral infection vs aspiration PNA/pneumonitis Etoh withdrawal: drinks liquor daily. Scoring 5-6 on CIWA start low dose IV ativan h/o SVT: resume atenolol once BP stable Diet: regular Dispo: inpt Subjective: cxr improved on R (interp by me). case d/w dr hassan. Extubated! Objective: Vital Signs Temp Pulse Resp BP Pulse Ox 37.8 C 87 16 131/77 H 96 01/27/17 14:00 01/27/17 14:00 01/27/17 14:00 01/27/17 14:00 01/27/17 14:00 Microbiology 01/23/17 11:15 Gram Stain - Final Lung Right Lower Lobe - Bronch Deweese Bronchial Washings Culture - Final 01/23/17 11:15 Mycobacterial Smear (NINO) - Final Lung Bilateral - Bronchial Washings Laboratory Results 01/27/17 04:30 01/27/17 12:50 01/26/17 01/27/17 01/28/17 05:59 05:59 05:59 Intake Total 2449.4 2715.6 513.7 Output Total 3225 3840 900 Balance -775.6 -1124.4 -386.3 - Physical Exam Constitutional: no apparent distress, appears nourished Eyes: PERRL, anicteric sclera Ears, Nose, Mouth, Throat: moist mucous membranes, hearing normal Cardiovascular: regular rate and rhythym, no murmur, rub, or gallop, No tachycardia Respiratory: no respiratory distress, No no rales or rhonchi, No inspiratory crackles Gastrointestinal: normoactive bowel sounds, soft, non-tender abdomen Genitourinary: no bladder fullness Skin: warm, normal color Musculoskeletal: full muscle strength, no muscle tenderness Neurologic: AAOx3 Psychiatric: interacting appropriately Lymph, Heme, Immunologic: no cervical LAD ICD10 Worksheet Patient Problems: Problems Problem Status Onset Pneumonia Acute
[2017-01-27] MEDS: NICOTINE 21 MG/24 HR PATCH TD SCH (15:05)
[2017-01-27 18:39] LABS: POTASSIUM 4.8 mEq/L (3.5-5.2)
[2017-01-27] MEDS: FAMOTIDINE 20 MG TAB PO SCH (20:50)
[2017-01-27] MEDS: GABAPENTIN 300 MG CAP PO SCH (20:50)
[2017-01-28] MEDS: AMPICILLIN/SULBACTAM 3 GM in NS 100 ML IV SCH ×4 (00:20→17:26)
[2017-01-28 02:06] LABS: POTASSIUM 4.2 mEq/L (3.5-5.2)
[2017-01-28 06:13] LABS: ADD DIFF? YES; ADD MORPH? NO; ADD SCAN? NO; ATYPICAL LYMPHOCYTE FLAG 60 (0-99); FRAGMENT RBC FLAG 0 (0-99); HEMATOCRIT 27.7 % (38.0-47.0); HEMOGLOBIN 8.9 g/dL (12.6-16.3); LEFT SHIFT FLG 50 (0-99); LIPEMIA HEMOLYSIS FLAG 80 (0-99); MEAN CELL HEMOGLOBIN 30.4 pg (27.9-34.1); MEAN CELL HEMOGLOBIN CONCENTR. 32.1 g/dL (32.4-36.7); MEAN CELL VOLUME 94.5 fL (81.5-99.8); MEAN PLATELET VOLUME 9.7 fL (8.7-11.7); PLATELET CLUMPS FLAG 0 (0-99); PLATELET COUNT 546 10^3/uL (150-400); RED BLOOD CELL COUNT 2.93 10^6/uL (4.18-5.33); RED CELL DISTRIBUTION WIDTH 14.2 % (11.5-15.2)
[2017-01-28] MEDS: IPRATROPIUM/ALBUTEROL 3 ML DEYVIAL IH SCH ×4 (06:18→21:06)
[2017-01-28 06:51] LABS: ANION GAP 8 mEq/L (8-16); CARBON DIOXIDE 30 mEq/l (22-31); CHLORIDE 102 mEq/L (97-110); CREATININE 0.4 mg/dL (0.6-1.0); GLOMERULAR FILTRATION RATE > 60; GLUCOSE 93 mg/dL (70-100); MACROCYTES 1+; MAGNESIUM 2.1 mg/dL (1.6-2.3); MICROCYTES 1+; PLATELET ESTIMATE INCREASED (ADEQ); POLYCHROMASIA 1+; POTASSIUM 4.4 mEq/L (3.5-5.2); SODIUM 140 mEq/L (134-144)
[2017-01-28] MEDS: FAMOTIDINE 20 MG TAB PO SCH ×2 (08:26→19:57)
[2017-01-28] MEDS: ATENOLOL 25 MG TAB PO SCH (08:35)
[2017-01-28] MEDS: THIAMINE HCL 100 MG TAB PO SCH (08:37)
[2017-01-28] MEDS: MULTIVITAMINS 1 EACH TAB PO SCH (08:37)
[2017-01-28] MEDS: FOLIC ACID 1 MG TAB PO SCH (08:39)
[2017-01-28] MEDS: FLUoxetine 20 MG CAP PO SCH (08:39)
[2017-01-28] MEDS: POTASSIUM CL 10 MEQ TAB PO SCH (08:39)
[2017-01-28] MEDS: GABAPENTIN 300 MG CAP PO SCH ×2 (08:40→19:57)
[2017-01-28] MEDS: ENOXAPARIN 40 MG/0.4 ML SYR SC SCH (08:40)
[2017-01-28] MEDS ORDERED: POTASSIUM CITRATE 10 MEQ TAB PO SCH (09:00)
[2017-01-28] MEDS: NICOTINE 21 MG/24 HR PATCH TD SCH (11:58)
--- NOTE | 2017-01-28 15:37 | HOSPPROG ---
Hospitalist Progress Note Assessment/Plan: 56 yo F w aspiration pneumonia, hypoxemic resp failure and alcohol withdrawal Acute metabolic/toxic encephalopathy: due acute infection, hypoxia and etoh w/ d. Improved. 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 volume overload: echo pretty normal bnp has come down w diuresis still some bibasilar crackles Depression: prozac resp alkalosis: improved h/o SVT: cont atenolol HTN: Lisinopril held due to hypotension, may be able to dc this Etoh withdrawal: resolved h/o SVT: resume atenolol once BP stable Diet: regular Dispo: inpt Subjective: Pt feels better. No CP or SOB. +rhinorrhea. No fevers. Coughing less. Ambulating, eating well. Objective: Vital Signs Temp Pulse Resp BP Pulse Ox 36.8 C 80 18 110/64 95 01/28/17 12:41 01/28/17 12:41 01/28/17 12:41 01/28/17 12:41 01/28/17 12:41 Laboratory Results 01/28/17 06:00 01/28/17 06:00 01/27/17 01/28/17 01/29/17 05:59 05:59 05:59 Intake Total 2715.6 1094.4 634 Output Total 3840 900 Balance -1124.4 194.4 634 - Physical Exam Constitutional: no apparent distress Eyes: PERRL Ears, Nose, Mouth, Throat: moist mucous membranes Cardiovascular: regular rate and rhythym Respiratory: no respiratory distress, other (bibasilar crackles) Skin: warm Musculoskeletal: full muscle strength Neurologic: AAOx3 Psychiatric: interacting appropriately ICD10 Worksheet Patient Problems: Problems Problem Status Onset Pneumonia Acute
--- NOTE | 2017-01-28 15:59 | ASMTCMCOM ---
CM Note CM Note Notes: Reviewed chart regarding discharge plan, pt's progress. Per ICU rounds, pt on 2L oxygen; speech therapy following; CIWA protocol discontinued; pt w/ short term memory issues. OT rec home w/ home health care, PT rec home. Pt to transfer to med/surg today. Discharge needs remain unclear. CM will cont to follow. Current Discharge Plan: TBD Date Signed: 01/28/2017 03:58 PM Electronically Signed By:Queenie Garg RN
[2017-01-28] MEDS: FLUTICASONE NASAL 120 SPRAYS/16 GM MDI EACHNARE SCH (16:18)
[2017-01-28] MEDS ORDERED: diphenhydrAMINE 25 MG CAP PO PRN (21:16)
[2017-01-28] MEDS ORDERED: HYDROCORTISONE 1% CREAM TP PRN (21:17)
[2017-01-28] MEDS: DIPHENHYDRAMINE CREAM TP PRN (22:08)
[2017-01-29 04:06] LABS: ADD DIFF? YES; ADD MORPH? NO; ADD SCAN? NO; ATYPICAL LYMPHOCYTE FLAG 70 (0-99); FRAGMENT RBC FLAG 0 (0-99); HEMATOCRIT 27.5 % (38.0-47.0); HEMOGLOBIN 8.6 g/dL (12.6-16.3); LEFT SHIFT FLG 40 (0-99); LIPEMIA HEMOLYSIS FLAG 80 (0-99); MEAN CELL HEMOGLOBIN 29.9 pg (27.9-34.1); MEAN CELL HEMOGLOBIN CONCENTR. 31.3 g/dL (32.4-36.7); MEAN CELL VOLUME 95.5 fL (81.5-99.8); MEAN PLATELET VOLUME 9.8 fL (8.7-11.7); PLATELET CLUMPS FLAG 0 (0-99); PLATELET COUNT 602 10^3/uL (150-400); RED BLOOD CELL COUNT 2.88 10^6/uL (4.18-5.33); RED CELL DISTRIBUTION WIDTH 14.1 % (11.5-15.2)
[2017-01-29 04:58] LABS: PLATELET ESTIMATE INCREASED (ADEQ)
[2017-01-29] MEDS: IPRATROPIUM/ALBUTEROL 3 ML DEYVIAL IH SCH ×4 (05:39→21:20)
[2017-01-29] MEDS: THIAMINE HCL 100 MG TAB PO SCH (07:22)
[2017-01-29] MEDS: FOLIC ACID 1 MG TAB PO SCH (07:22)
[2017-01-29] MEDS: POTASSIUM CL 10 MEQ TAB PO SCH (07:22)
[2017-01-29] MEDS: MULTIVITAMINS 1 EACH TAB PO SCH (07:23)
[2017-01-29] MEDS: GABAPENTIN 300 MG CAP PO SCH ×2 (07:23→20:56)
[2017-01-29] MEDS: FLUoxetine 20 MG CAP PO SCH (07:24)
[2017-01-29] MEDS: FAMOTIDINE 20 MG TAB PO SCH ×2 (07:24→20:56)
[2017-01-29] MEDS: ATENOLOL 25 MG TAB PO SCH (07:24)
[2017-01-29] MEDS: FLUTICASONE NASAL 120 SPRAYS/16 GM MDI EACHNARE SCH (07:25)
[2017-01-29] MEDS: ENOXAPARIN 40 MG/0.4 ML SYR SC SCH (07:25)
--- NOTE | 2017-01-29 08:32 | HOSPPROG ---
Hospitalist Progress Note Assessment/Plan: 56 yo F w aspiration pneumonia, hypoxemic resp failure and alcohol withdrawal Acute metabolic/toxic encephalopathy: due acute infection, hypoxia and etoh w/ d. Improved. Severe sepsis: due to viral URI / asp PNA. Resolved. Acute hypoxemic resp failure: due to above, on 2 LPM, drops to 85% on RA day 6/7 unasyn, stopped last night. Will complete last day with oral Augmentin bronch pretty unrevealing may need home o2 ? volume overload: echo pretty normal. Exam improved today, no more crackles. bnp has come down w diuresis Depression: prozac resp alkalosis: improved h/o SVT: cont atenolol HTN: Lisinopril held due to hypotension, may be able to dc this Etoh withdrawal: resolved Thrombocytosis: suspect APR, ?delayed response. WBC's also on the rise. cont to monitor on current therapy h/o SVT: resume atenolol once BP stable Diet: regular Dispo: inpt. Possible d/c tomorow am. Subjective: Pt feels better. Still some postnasal drip and ear pain. No fevers. No CP or SOB. Coughing less. Denies orthopnea or PND. Objective: Vital Signs Temp Pulse Resp BP Pulse Ox 36.7 C 79 16 156/85 H 99 01/29/17 07:05 01/29/17 07:05 01/29/17 07:05 01/29/17 07:05 01/29/17 07:05 Laboratory Results 01/29/17 03:50 01/28/17 06:00 01/28/17 01/29/17 01/30/17 05:59 05:59 05:59 Intake Total 1094.4 634 Output Total 900 Balance 194.4 634 - Physical Exam Constitutional: no apparent distress Eyes: PERRL, other (TM's with b/l scarring, no erythema or e/o OM) Ears, Nose, Mouth, Throat: moist mucous membranes Cardiovascular: regular rate and rhythym, no murmur, rub, or gallop Respiratory: no respiratory distress, clear to auscultation Gastrointestinal: normoactive bowel sounds, soft, non-tender abdomen Skin: warm Musculoskeletal: full muscle strength Neurologic: AAOx3 Psychiatric: interacting appropriately ICD10 Worksheet Patient Problems: Problems Problem Status Onset Pneumonia Acute
[2017-01-29] MEDS: AMOXICILLIN/CLAVULANATE POT 875/125 MG TAB PO SCH ×2 (09:26→20:56)
--- NOTE | 2017-01-29 11:31 | ASMTCMCOM ---
CM Note CM Note Notes: CM met w/ pt for dispo planning. Pt reports that she is not interested in HC at this time. 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 Pt will most likely discharge independent when medically stable.. CM available for d/c needs. Date Signed: 01/29/2017 11:31 AM Electronically Signed By:JANELLE Jerez
[2017-01-29 16:05] VITALS: RESP 18
[2017-01-30] MEDS ORDERED: IBUPROFEN 200 MG TAB PO ONE (02:55)
[2017-01-30 03:19] LABS: ADD DIFF? YES; ADD MORPH? NO; ADD SCAN? NO; ATYPICAL LYMPHOCYTE FLAG 30 (0-99); FRAGMENT RBC FLAG 0 (0-99); HEMATOCRIT 29.1 % (38.0-47.0); HEMOGLOBIN 9.5 g/dL (12.6-16.3); LEFT SHIFT FLG 30 (0-99); LIPEMIA HEMOLYSIS FLAG 80 (0-99); MEAN CELL HEMOGLOBIN 30.4 pg (27.9-34.1); MEAN CELL HEMOGLOBIN CONCENTR. 32.6 g/dL (32.4-36.7); MEAN CELL VOLUME 93.3 fL (81.5-99.8); MEAN PLATELET VOLUME 9.5 fL (8.7-11.7); PLATELET CLUMPS FLAG 0 (0-99); PLATELET COUNT 681 10^3/uL (150-400); RED BLOOD CELL COUNT 3.12 10^6/uL (4.18-5.33); RED CELL DISTRIBUTION WIDTH 13.9 % (11.5-15.2)
[2017-01-30 03:58] LABS: GIANT PLATELETS PRESENT; PLATELET ESTIMATE INCREASED (ADEQ); POLYCHROMASIA 1+
[2017-01-30] MEDS: IPRATROPIUM/ALBUTEROL 3 ML DEYVIAL IH SCH (06:06)
[2017-01-30 07:27] VITALS: BP 141/82; PULSE 78; TEMP 98; O2SAT 97
[2017-01-30] MEDS: AMOXICILLIN/CLAVULANATE POT 875/125 MG TAB PO SCH (07:56)
[2017-01-30] MEDS: GABAPENTIN 300 MG CAP PO SCH (07:56)
[2017-01-30] MEDS: ATENOLOL 25 MG TAB PO SCH (07:57)
[2017-01-30] MEDS: FAMOTIDINE 20 MG TAB PO SCH (07:57)
[2017-01-30] MEDS: POTASSIUM CL 10 MEQ TAB PO SCH (07:58)
[2017-01-30] MEDS: THIAMINE HCL 100 MG TAB PO SCH (07:58)
[2017-01-30] MEDS: MULTIVITAMINS 1 EACH TAB PO SCH (07:59)
[2017-01-30] MEDS: FLUoxetine 20 MG CAP PO SCH (07:59)
[2017-01-30] MEDS: ENOXAPARIN 40 MG/0.4 ML SYR SC SCH (08:00)
[2017-01-30] MEDS: FOLIC ACID 1 MG TAB PO SCH (08:00)
[2017-01-30] MEDS: FLUTICASONE NASAL 120 SPRAYS/16 GM MDI EACHNARE SCH (08:12)
[2017-01-30] MEDS: DIPHENHYDRAMINE CREAM TP PRN (08:13)
--- NOTE | 2017-01-30 09:20 | GDS ---
[f rep st] DISCHARGE SUMMARY DISCHARGE DIAGNOSES: 1. Severe sepsis secondary to pneumonia. 2. Acute hypoxemic respiratory failure, resolved. 3. Acute alcohol withdrawal, resolved. 4. Acute encephalopathy secondary to infection. 5. Depression. 6. History of supraventricular tachycardia. 7. Hypertension. 8. Thrombocytosis. 9. Leukocytosis. CONSULTANTS: Ignacio Rainey DO, Pulmonology. HISTORY: For details, please see dictated History and Physical dated January 20, 2017. In brief, wesley weiner patient is a 56-year-old female with a history of alcohol dependence, who presents to the emergenc y department with cough and fever. She was found to be hypoxic at 75% on room air, and was admitted to the hospital for treatment of severe sepsis and pneumonia. HOSPITAL COURSE: The patient was admitted to the intensive care unit and required intubation and mec hanical ventilation. She was extubated shortly after admission. She received IV fluid resuscitation in the setting of severe sepsis. She was started on ceftriaxone and azithromycin for community-acqu ired pneumonia. Her blood cultures were negative. Her respiratory pathogen panel revealed rhino vir us and enterovirus. There was some concern for aspiration, and she was changed to IV Unasyn. She co mpleted 7 days of antibiotic therapy in the hospital. During her ICU stay, she developed acute alcoh ol withdrawal and was treated with benzodiazepines. Her condition improved. She was transferred to the Med/Surg unit. She has had a persistent mild leukocytosis; however, her hypoxemia has completed resolved. She is satting 97% in room air. Her symptoms have improved. Her lungs are clear. A repe at chest x-ray showed improvement, and clinically she appears well on the day of discharge; however, she should have a repeat CBC in 2-3 days to follow up on her mild leukocytosis and thrombocytosis, wh ich may be a delayed phase reactant. PROCEDURES: Bronchoscopy, January 23, 2017, with bronchial washings. Cultures negative. Mycobacte rial culture negative and fungal culture negative. DISPOSITION: Patient is discharged home in stable condition. DISCHARGE INSTRUCTIONS: She will follow up with her primary care physician in [place], [place] in 2-3 days for repeat CBC. DISCHARGE MEDICATIONS: Please see [employer] complete updated medication list. Medications on dischar ge include Flonase, folic acid 1 mg p.o. daily, multivitamin 1 p.o. daily, and thiamine 100 mg p.o. d aily. I have also decreased her lisinopril from 20 to 10 mg daily. This can be increased as indicat ed when she follows up with her PCP depending on her blood pressure. /[id number]/MODL
--- NOTE | 2017-01-30 15:10 | ASDISCHSUM ---
Discharge Information Plan Status:Home with No Needs Medically Cleared to Leave:01/29/2017 Discharge Date:01/30/2017 10:31 AM CM D/C Disposition: ADT D/C Disposition:Home, Routine, Self-Care Projected Discharge Date:01/30/2017 12:00 AM Transportation at D/C: Discharge Delay Reason: Follow-Up Date:01/30/2017 12:00 AM Discharge Slot: Final Diagnosis: Placement Information Patient Contact Information Contact Name:KVNG Relationship:Daughter Address:[address] [address] Work Phone: City:[place] Alternate Phone: [facility]/Zip Code:[place] [address] Email: Financial Information Financial Class: Primary Plan Desc:[employer] [place] Primary Plan Number:[id number] Secondary Plan Desc: Secondary Plan Number: Assessment Information [facility] CM Progress Note CM Note CM Note Notes: Patient admitted after presenting to [facility] with hypotension and low 02 sats. Diagnosed with PNA. Now on antibiotics and improving. PT/OT ordered and pending. Patient lives with her boyfriend and other family members. I anticipate she will discharge independently. CM available for any d/c needs. Date Signed: 01/21/2017 10:46 AM Electronically Signed By:Yue Bolanos RN [facility] CM Progress Note CM Note CM Note Notes: Patient does not have decisional capacity given the confusion from acute illness and w/d. Dr. Rey will put on medical detainer if patient tries to leave. Patient is agreeable to stay for now. PT/OT/SPL have been ordered. CM will follow. Date Signed: 01/22/2017 02:45 PM Electronically Signed By:Breann Hernandez LCSW [facility] CM Progress Note CM Note CM Note Notes: Patient remains on vent. OT/SPL eval still needed. CM will continue to follow. Date Signed: 01/27/2017 11:21 AM Electronically Signed By:Breann Hernandez LCSW [facility] CM Progress Note CM Note CM Note Notes: Reviewed chart regarding discharge plan, pt's progress. Per ICU rounds, pt on 2L oxygen; speech therapy following; CIWA protocol discontinued; pt w/ short term memory issues. OT rec home w/ home health care, PT rec home. Pt to transfer to med/surg today. Discharge needs remain unclear. CM will cont to follow. Current Discharge Plan: TBD Date Signed: 01/28/2017 03:58 PM Electronically Signed By:Queenie Garg RN [facility] CM Progress Note CM Note CM Note Notes: CM met w/ pt for dispo planning. Pt reports that she is not interested in HC at this time. 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 Pt will most likely discharge independent when medically stable.. CM available for d/c needs. Date Signed: 01/29/2017 11:31 AM Electronically Signed By:JANELLE Jerez Intervention Information Intervention Type:*Incorrect Registration Date of Service:01/21/2017 09:43 AM Patient Type:Observation Staff Member:INDIRA Vaca Susan Hours: Discipline: Severity: Comment:
== END 2017-01-30 10:31 | disposition home or self-care (01) | DRG 870 ==
LOC: CED 13:44 → INTOOBSV 15:07 → CEDHOLD 15:07 → UNDOADMIN 15:07 → F3E 17:12 → OBSVTOIN 01-21 11:44 → F2N 01-22 02:41 → F3E 01-28 12:32
PROVIDERS: ADMIT Internal Medicine; ATTEND Hospitalist
PROC: 5A1955Z Respiratory Ventilation, Greater than 96 Consecutive Hours (ICD-10-PCS; principal; 2017-01-22)
PROC: 0BH17EZ Insertion of Endotracheal Airway into Trachea, Via Natural or Artificial Opening (ICD-10-PCS; 2017-01-22)
PROC: 02HV33Z Insertion of Infusion Device into Superior Vena Cava, Percutaneous Approach (ICD-10-PCS; 2017-01-23)
PROC: 3E0G76Z Introduction of Nutritional Substance into Upper GI, Via Natural or Artificial Opening (ICD-10-PCS; 2017-01-24)
PROC: 0DH67UZ Insertion of Feeding Device into Stomach, Via Natural or Artificial Opening (ICD-10-PCS; 2017-01-24)
DX: A41.9 Sepsis, unspecified organism (principal); R65.20 Severe sepsis without septic shock; J00 Acute nasopharyngitis [common cold]; J18.9 Pneumonia, unspecified organism; J69.0 Pneumonitis due to inhalation of food and vomit; J96.01 Acute respiratory failure with hypoxia; G93.41 Metabolic encephalopathy; F10.239 Alcohol dependence with withdrawal, unspecified; G89.29 Other chronic pain; M54.9 Dorsalgia, unspecified; I47.1 Supraventricular tachycardia; E87.3 Alkalosis; I10 Essential (primary) hypertension; F32.9 Major depressive disorder, single episode, unspecified; F17.210 Nicotine dependence, cigarettes, uncomplicated; D47.3 Essential (hemorrhagic) thrombocythemia
CPT/HCPCS: 71020-PO; 80048-PO; 83605-PO; 85025-PO; 92507-GN; 92523-GN; 92526-GN; 92610-GN; 96365; 97116-GP; 97161-GP; 97165-GO; 97168-GO; 97535-GO; C1751; C1769; G0378; G9168-GN-CK; G9169-GN-CI; J0295; J0330; J0456; J0696; J0834; J1650; J1940; J2060; J2250; J2704; J3010; J3411; J3475; P9041